=== PATIENT | male | born 1955 | race Caucasian/White ===

== ENCOUNTER 2019-08-11 14:41 | Outpatient (RCR) | payer MEDICARE, SELFPAY ==
--- NOTE | 2019-08-11 17:02 | PTOPEVAL ---
Thank you for referring this patient to [facility]. Please review, sign, date and return this plan of care JEAN-PAUL. I agree with and certify that the following plan of care is medically necessary. Referring Physician Date Admitting Provider: Attending Provider: Shamar Guillory MD Referring Provider: *PT Outpatient Evaluation Start: 08/11/19 14:56 Freq: Status: Active Protocol: Document 08/11/19 14:56 JOSLYN (Rec: 08/11/19 16:23 JOSLYN [id number]) Therapy Assessment Status Assessment Status Assessment Status Evaluation Evaluation Information Problem Diagnosis low back pain Onset 07/10/19 Subjective Information Pt. reports that he was Query Text:As Reported By Patient/ participating in cardiac rehab Family following a triple bypass in February. He reports he began cardiac rehab around March . He reports that he was demonstrating gains, but towards the conclusion of his rehab had developed low back pain. He reports that pain is all on the right side around the buttock. He reports pain is most notable with movements after sitting or laying for long times. He reports that pain is also increased with standing in one position, but will ease with walking. Pt. reports that he wants to decrease his back pain with standing upright. Prior Level of Function Activity Level (Last 3 Months) Hand Dominance Right Activity of Daily Living Ability Independent Indoor/Home Mobility Independent Community Mobility Independent Stairs Ability Independent Functional Cognition (Planning, Shopping Independent , Taking Medications) Cooking Yes Cleaning Yes Laundry Yes Shopping Yes Driving Yes Pain Assessment Pain Scale Pain Scale Used Numeric (1 - 10) Self Report Pain Assessment Right Lower Back Reported Pain Level 1 Pain Description Aching Current Pain Intensity 1 Lowest Pain Intensity 1 Greatest Pain Intensity 8 Pain Aggravating Factors Prolonged Position,Sitting Pain Relie
--- NOTE | 2019-10-16 07:17 | PCPTNOTE ---
Pt. has failed to return to the clinic. He attended a total of 7 treatment sessions. He will be discharged from our care at this time.
== END 2019-09-08 09:42 | disposition home or self-care (01) ==
LOC: CHSPT 14:41
PROVIDERS: Visit Provider Family Medicine
DX: M54.5 Low back pain (principal)
CPT/HCPCS: 97014; 97110; 97161; G0283

== ENCOUNTER 2019-09-24 13:58 | Outpatient (CLI) | payer MEDICARE, SELFPAY ==
--- NOTE | ~2019-09-24 | MR_ITS ---
EXAMINATION: MR lumbar spine wo con EXAM DATE: 09/24/2019 16:16 INDICATION: Low back pain radiating down right buttock, hip. TECHNIQUE: Multi-sequential, multiplanar MR images of the lumbar spine were obtained without contrast . Sagittal T1, T2, T2 fat saturation images. Axial T2 weighted images. There is no prior study for comparison. FINDINGS: There is mild to moderate disc disease L3-4 and L4-5, mild at the other lumbar levels. Ther e is 3 mm retrolisthesis L3 on L4 and L4 on L5. Heterogeneous marrow without focal suspicious signal abnormalities. The conus medullaris terminates at the T12-L1 level and has normal signal intensity an d morphology. Paraspinal soft tissue is unremarkable. Level by level evaluation: T12-L1: Disc does not extend beyond the endplate margin. Facet arthropathy: Mild. Neural foraminal stenosis: No stenosis. Central canal stenosis: No stenosis. L1-L2: There is a mild diffuse disc bulge. Facet arthropathy: Mild. Neural foraminal stenosis: No stenosis. Central canal stenosis: No stenosis. L2-L3: There is a mild diffuse disc bulge. Facet arthropathy: Mild. Neural foraminal stenosis: Mild bilateral. Central canal stenosis: Mild. L3-L4: There is a moderate diffuse disc bulge. Facet arthropathy: Mild to moderate. Neural foraminal stenosis: Moderate to severe bilateral. Central canal stenosis: Mild to moderate. L4-L5: There is a moderate diffuse disc bulge. Facet arthropathy: Mild to moderate. Neural foraminal stenosis: Moderate bilateral. Central canal stenosis: Mild to moderate. L5-S1: There is a moderate diffuse disc bulge. Facet arthropathy: Moderate to severe right, moderate left. Neural foraminal stenosis: Moderate to severe bilateral. Central canal stenosis: Mild. IMPRESSION: 1. L5-S1 moderate to severe bilateral neural foraminal stenosis. 2. Lesser spondylosis above. Reviewed, dictated and finalized at location B. 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
== END 2019-09-24 13:59 | disposition home or self-care (01) ==
LOC: CHSIMG 13:59
PROVIDERS: PCP Family Medicine; Visit Provider Family Medicine
DX: M54.5 Low back pain (principal)
CPT/HCPCS: 72148

== ENCOUNTER 2020-11-24 09:07 | Outpatient (CLI) | payer MEDICARE, SELFPAY ==
--- NOTE | ~2020-11-24 | MR_ITS ---
EXAMINATION: MR lumbar spine wo/w con DATE: 11/24/2020 10:53 INDICATION: Lumbar radiculopathy. TECHNIQUE: Magnetic resonance imaging (MRI) of the lumbar spine was performed without and with 10 mL MultiHance intravenous contrast. Sequences included sagittal T2-weighted FSE, sagittal T2-weighted FS FSE, and sagittal and axial T1-weighted FSE. Postcontrast sequences included axial T2-weighted FSE a nd axial and sagittal T1-weighted FS FSE. COMPARISON: Lumbar spine MRI 09/24/2019 FINDINGS: There is 3 mm retrolisthesis of L2 on L3, L3 on L4, and L4 on L5. There are Schmorl's nodes at most levels. There is mild chronic anterior wedging of T12-L2 vertebral bodies. There is mildly d ecreased disc height at L3-L4, severely decreased disc height at L4-L5, and moderately decreased disc height at L5-S1. The distal spinal cord signal intensity is normal. The conus medullaris is at L1. T he following disc levels are specifically discussed: L1-L2: The disc does not extend beyond the endplate margin. There is mild bilateral facet joint osteo arthritis. There is no neural foraminal stenosis. There is no central canal stenosis. L2-L3: The disc does not extend beyond the endplate margin. There is mild bilateral facet joint osteo arthritis. There is no neural foraminal stenosis. There is no central canal stenosis. L3-L4: The disc is bulging and has an annular fissure. There is mild bilateral facet joint osteoarthr itis. There is moderate bilateral neural foraminal stenosis. There is mild central canal stenosis. L4-L5: The disc is bulging and has an annular fissure. There is severe bilateral facet joint osteoart hritis. There is moderate bilateral neural foraminal stenosis. There is mild central canal stenosis. L5-S1: The disc is bulging with superimposed left central extrusion with 12 mm superior extension. Th ere is severe bilateral facet joint osteoarthritis. There is moderate bilateral neural foraminal sten osis. There is mild central canal stenosis. IMPRESSION: 1. Severe lumbar spondylosis, worsened at L5-S1 from 09/24/2019. Reviewed, dictated and finalized at location A.
--- NOTE | ~2020-11-24 | CT_ITS ---
EXAMINATION: CT lumbar spine wo con DATE: 11/24/2020 09:38 INDICATION: Low back pain. TECHNIQUE: Computed tomography (CT) of the lumbar spine was performed without intravenous contrast. A utomated exposure control and iterative reconstruction technique were employed. The dose-length produ ct was 1248.20 mGy-cm. COMPARISON: Lumbar spine MRI 09/24/2019 FINDINGS: There is 3 degrees levocurvature of lumbar spine. There is 3 mm retrolisthesis of L2 on L3, L3 on L4, and L4 on L5. There are Schmorl's nodes at most levels. There is mild chronic anterior wed ging of T12-L2 vertebral bodies. There is mildly decreased disc height at L3-L4, severely decreased d isc height at L4-L5, and moderately decreased disc height at L5-S1. The following disc levels are spe cifically discussed: L1-L2: The disc does not extend beyond the endplate margin. There is mild bilateral facet joint osteo arthritis. There is no neural foraminal stenosis. There is no central canal stenosis. L2-L3: The disc does not extend beyond the endplate margin. There is mild bilateral facet joint osteo arthritis. There is no neural foraminal stenosis. There is no central canal stenosis. L3-L4: The disc is bulging. There is mild right and moderate left facet joint osteoarthritis. There i s moderate bilateral neural foraminal stenosis. There is mild central canal stenosis. L4-L5: The disc is bulging. There is severe bilateral facet joint osteoarthritis. There is moderate b ilateral neural foraminal stenosis. There is mild central canal stenosis. L5-S1: The disc is bulging. There is severe bilateral facet joint osteoarthritis. There is moderate b ilateral neural foraminal stenosis. There is mild central canal stenosis. IMPRESSION: 1. Severe lumbar spondylosis. Reviewed, dictated and finalized at location A.
[2020-11-24 09:27] LABS: Estimated Glomerular Filt Rate 47
== END 2020-11-24 09:08 | disposition home or self-care (01) ==
LOC: CHSIMG 09:09
PROVIDERS: PCP Family Medicine
DX: M54.16 Radiculopathy, lumbar region (principal); M48.061 Spinal stenosis, lumbar region without neurogenic claudication; R26.2 Difficulty in walking, not elsewhere classified
CPT/HCPCS: 72131; 72158; A9577

== ENCOUNTER 2021-02-26 09:20 | Emergency (ER) | payer MEDICARE, SELFPAY ==
--- NOTE | ~2021-02-26 | CT_ITS ---
EXAMINATION: CT abdomen pelvis wo con DATE: 02/26/2021 10:46 INDICATION: Right flank pain. TECHNIQUE: Computed tomography (CT) of the abdomen and pelvis was performed without intravenous contr ast. Automated exposure control and iterative reconstruction technique were employed. The dose-length product was 1222.41 mGy-cm. COMPARISON: None FINDINGS: Lung bases are clear. Heart size is normal. Atherosclerotic coronary artery calcification with change of prior median sternotomy and coronary artery bypass grafting. No pericardial or pleural effusion. Liver, gallbladder, spleen and bilateral adrenal glands are normal. There is marked fatty atrophy of the body and tail of the pancreas. Moderate bilateral renal atrophy with 1 mm stones at the lower joe yces of both kidneys. Additional 1 mm nonobstructing stone at the right ureterovesicular junction. No hydronephrosis. Partially decompressed bladder is normal. Prominent diverticulosis throughout the co phuong without adjacent inflammatory change to suggest diverticulitis. Small bowel and appendix are norm al. Small fat-containing right inguinal hernia. No free intraperitoneal gas or fluid. No pathological ly enlarged abdominal or pelvic lymphadenopathy. There is calcified atherosclerosis of the aorta and many of the other arteries. Moderate lower lumbar spondylosis. IMPRESSION: 1. Nephrolithiasis with 1 mm stones at the right ureterovesicular junction and lower pole calyces of both kidneys with no hydronephrosis. 2. Diverticulosis. 3. Small fat-containing right inguinal hernia. Reviewed, dictated and finalized at location A.
[2021-02-26 09:50] VITALS: BP 132/69; PULSE 80; RESP 20; TEMP 36.6; O2SAT 94
[2021-02-26 10:05] LABS: Add Urine Microscopic? YES; Appearance Urine Sl Cloudy (Clear); Bilirubin Urine Negative (Negative); Blood Urine 3+ (Negative); Color Urine Yellow (Yellow); Glucose Urine UA Negative (Negative); Ketones Urine Trace (Negative); Leukocyte Esterase Ur Negative LEU/UL (Negative); Nitrate Urine Negative (Negative); Protein Urine Negative (Negative); Specific Grav Ur 1.025 (1.010-1.020); Urobilinogen Urine 0.2 mg/dL (0.2-1.0); pH Urine 5.5 (5.0-8.0)
[2021-02-26] MEDS: KETOROLAC 30 MG/ML VIAL (*BKC) IV PUSH (10:18)
[2021-02-26 10:20] LABS: Basophils Absolute Auto 0.04 K/mm3 (0.00-0.10); Basophils Percent Auto 0.5 % (0.0-1.0); Eosinophils Absolute Auto 0.16 K/mm3 (0.02-0.50); Hematocrit 42.7 % (37.0-46.0); Hemoglobin 14.2 g/dL (12.4-15.3); Immature Granulocyte Absolute 0.12 K/mm3 (0.00-0.00); Immature Granulocyte Percent A 1.5 % (0.0-0.0); Lymphocytes Absolute Auto 1.51 K/mm3 (1.10-4.50); Lymphocytes Percent Auto 19.2 % (18.0-42.0); Mean Corpuscular HGB Conc 33.3 g/dL (32.0-36.0); Mean Corpuscular Hemoglobin 30.1 pg (27.0-31.0); Mean Corpuscular Volume 90.7 fL (78.0-102.0); Monocytes Absolute Auto 0.67 K/mm3 (0.10-0.90); Monocytes Percent Auto 8.5 % (2.0-11.0); Neutrophils Absolute Auto 5.4 K/mm3 (1.7-7.2); Neutrophils Percent Auto 68.3 % (50.0-70.0); Platelet Count Result 205 K/mm3 (150-420); Red Blood Count 4.71 M/mm3 (4.70-6.10); Red Cell Distribution Width 13.7 % (11.6-14.4); White Blood Count 7.9 K/mm3 (4.8-10.8)
[2021-02-26 10:21] LABS: Bacteria Urine Trace /hpf; RBC Urine 51-75 /hpf (0-2); Squamous Epithelial Cell Urine Rare /hpf (Few); Uric Acid Crystals Urine Present /hpf; WBC Urine None seen /hpf (0-3)
[2021-02-26 10:41] LABS: Alanine Aminotransferase 16 U/L (16-63); Albumin Level 3.6 g/dL (3.4-5.0); Alkaline Phosphatase 87 U/L (46-116); Anion Gap 12 mmol/L (8-16); Aspartate Amino Transferase 20 U/L (15-37); Bilirubin,Total 0.7 mg/dL (0.00-1.00); Blood Urea Nitrogen 38 mg/dL (7-18); Calcium 9.1 mg/dL (8.5-10.1); Carbon Dioxide 27 mmol/L (21-32); Chloride 103 mmol/L (98-108); Estimated CRCL calculation 54 ml/min; Estimated Glomerular Filt Rate 46; Glucose 127 mg/dL (70-99); Osmolality Calculated 305 mOsm/kg (285-295); Potassium 4.1 mmol/L (3.5-5.1); Sodium 142 mmol/L (136-145); Total Protein 7.4 g/dL (6.4-8.2)
--- NOTE | 2021-02-26 11:10 | ED.GENADULT ---
HPI - General Adult General Chief complaint: Urogenital-Male Stated complaint: low back, blood in urine, painful urination Time Seen by Provider: 02/26/21 10:05 Source: patient Mode of arrival: ambulatory Limitations: no limitations History of Present Illness HPI narrative: Patient comes in after waking this am with right flank pain moderately severe, most dull pain, ongoing for the past 2 hours prior to presentation, and accompanied with blood in his urine. nothing has relieved this at home. Onset (ago): hour(s) Radiation: non-radiation Severity: moderate Quality: dull Pain Consistency: constant Relieving factors: none Exacerbating factors: none Associated symptoms: other (bloody urine) Treatments prior to arrival: none Related Data Home Medications Medication Instructions Recorded Confirmed aspirin 81 mg tablet,delayed 81 mg PO DAILY 08/19/19 02/26/21 release lisinopril 20 mg tablet 80 mg PO DAILY 08/19/19 02/26/21 metoprolol tartrate 100 mg tablet 100 mg PO BID tablet 08/19/19 02/26/21 carbidopa-levodopa 2.5 tablet PO QID 02/26/21 02/26/21 doxazosin 2 mg PO DAILY 02/26/21 02/26/21 hydrochlorothiazide 12.5 mg PO DAILY 02/26/21 02/26/21 melatonin 1 mg PO TID 02/26/21 02/26/21 Allergies Allergy/AdvReac Type Severity Reaction Status Date / Time No Known Allergies Allergy Unverified 02/26/21 10:26 Review of Systems Constitutional: Constitutional: Reports no additional constitutional complaints Eyes: Eyes: Reports no additional eye complaints ENT: Reports system reviewed and no additional complaints, except as documented Cardiovascular: Cardiovascular: Reports no additional cardiovascular complaints Respiratory: Respiratory: Reports no additional respiratory complaints Gastrointestinal: Gastrointestinal: Reports no additional gastrointestinal complaints Genitourinary: Genitourinary: Reports no additional male genitourinary complaints Musculoskeletal: Musculoskeletal: Reports no additional musculoskeletal complaints Integumentary/Breasts: Skin/Breast: Reports system reviewed and no additional complaints, except as docu Neurologic: Reports system reviewed and no additional complaints, except as documented Psychiatric: Psychiatric: Reports no additional psychiatric complaints Endocrine: Endocrine: Reports no additional endocrine complaints Hematologic/Lymphatic: Hematologic/Lymphatic: Reports no additional hematologic/lymphatic complaints Allergic/Immunologic: Allergic/Immunologic: Reports no additional allergic/immunologic complaints PMFSH Past Medical History Medical History Kidney stone Surgical History Surgical History Hx of CABG Family History Family History Grandparent Acute myocardial infarction Family history of arthritis Malignant neoplasm of prostate Mother Family history of arthritis Other Family history of hearing loss Social History Social History Smoking status: Never smoker Second hand tobacco smoke exposure: No Alcohol intake: current Gender identity (if verbalized by the patient): Male Exam Const: Orientation/consciousness: patient oriented x3 HENMT: Head: normal to inspection Ears: TM's normal bilaterally General nose exam: Normal nares present Mouth: Yes Normal oral and palatal mucosa present Throat: posterior oropharynx normal Eyes: Conjunctivae: conjunctivae normal Neck: Neck: no lymphadenopathy Chest: Chest palpation & inspection: normal inspection of the chest Resp: Effort & Inspection: normal respiratory effort Auscultation: clear to auscultation bilaterally Cardio: Rate: regular rate Rhythm: regular rhythm GI: GI Palp: Yes Soft to palpation Auscultation: normal bowel sounds : Testes: Testes normal Back/Spine/Pelvis: Back:
[2021-02-26] MEDS: TAMSULOSIN HCL 0.4 MG CAPSULE PO (11:47)
[2021-02-26 12:02] VITALS: BP 101/72; PULSE 74; RESP 20; TEMP 36.6; O2SAT 96
== END 2021-02-26 12:04 | disposition home or self-care (01) ==
PROVIDERS: Emergency Provider Emergency Medicine; PCP Family Medicine
DX: N20.0 Calculus of kidney (principal)
CPT/HCPCS: 36415; 74176; 80053; 81001; 83605; 85025; 96374; 99283; 99284; A9270; J1885

== ENCOUNTER 2021-03-10 10:36 | Emergency (ER) | payer MEDICARE, SELFPAY ==
[2021-03-10] VITALS (9 sets, daily range): BP systolic 91–131; BP diastolic 56–75; PULSE 75–89; RESP 17–22; TEMP 35.8–35.9; O2SAT 84–100
--- NOTE | ~2021-03-10 | CT_ITS ---
EXAMINATION: CTA chest PE protocol DATE: 03/10/2021 13:07 INDICATION: Shortness of breath. TECHNIQUE: Computed tomography angiography (CTA) of the chest was performed with 100 mL Omnipaque-350 intravenous contrast timed to evaluate the pulmonary arteries. Coronal maximum intensity projection 3D-reconstructions were created by the technologist. Automated exposure control and iterative reconst ruction technique were employed. The dose-length product was 736.91 mGy-cm. COMPARISON: Chest CT 12/16/2018 FINDINGS: The lungs demonstrate mild atelectasis. No pleural effusion. The heart demonstrates cardiom egaly including right ventricular enlargement, consistent with right heart strain. There are coronary artery calcifications. No pericardial effusion. Main pulmonary artery is enlarged, consistent with p ulmonary arterial hypertension. There are saddle emboli in the distal right and left main pulmonary a rteries with pulmonary emboli in all lobes. There are changes of coronary artery bypass grafting. The re is mild thoracic spondylosis. IMPRESSION: 1. Severe acute bilateral pulmonary emboli with right heart strain. I called this result to Dr. Tanesha coe. Reviewed, dictated and finalized at location A. IMPRESSION: 1. Severe acute bilateral pulmonary emboli with right heart strain. I called th is result to Dr. Luis.
--- NOTE | 2021-03-10 11:34 | ECG_ITS ---
Measurements Intervals [place] Rate: 77 P: 4 MT: 257 QRS: 68 QRSD: 99 T: -23 QT: 389 QTc: 440 Interpretive Statements SINUS RHYTHM WITH FIRST DEGREE AV BLOCK INCOMPLETE RIGHT BUNDLE BRANCH BLOCK DELAYED PRECORDIAL R/S TRANSITION ST-T WAVE ABNORMALITY IN ANTERIOR LEADS- CONSIDER ISCHEMIA BASELINE ARTIFACT- II, III, AVR, AVL, AVF, V2-V5 ABNORMAL ECG Electronically Signed On 03-10-2021 11:57:28 CDT by Aníbal Gottlieb D.O.
[2021-03-10 11:58] LABS: Basophils Absolute Auto 0.04 K/mm3 (0.00-0.10); Basophils Percent Auto 0.5 % (0.0-1.0); Eosinophils Absolute Auto 0.22 K/mm3 (0.02-0.50); Eosinophils Percent Auto 2.7 % (1.0-6.0); Hematocrit 43.4 % (37.0-46.0); Hemoglobin 14.1 g/dL (12.4-15.3); Immature Granulocyte Absolute 0.06 K/mm3 (0.00-0.00); Immature Granulocyte Percent A 0.7 % (0.0-0.0); Lymphocytes Absolute Auto 1.21 K/mm3 (1.10-4.50); Lymphocytes Percent Auto 15.1 % (18.0-42.0); Mean Corpuscular HGB Conc 32.5 g/dL (32.0-36.0); Mean Corpuscular Hemoglobin 29.4 pg (27.0-31.0); Mean Corpuscular Volume 90.6 fL (78.0-102.0); Monocytes Absolute Auto 0.67 K/mm3 (0.10-0.90); Monocytes Percent Auto 8.3 % (2.0-11.0); Neutrophils Absolute Auto 5.8 K/mm3 (1.7-7.2); Neutrophils Percent Auto 72.7 % (50.0-70.0); Platelet Count Result 163 K/mm3 (150-420); Red Blood Count 4.79 M/mm3 (4.70-6.10); Red Cell Distribution Width 13.6 % (11.6-14.4)
[2021-03-10 12:23] LABS: D Dimer 15.21 mg/L (0.19-0.50)
[2021-03-10 12:25] LABS: Alanine Aminotransferase 13 U/L (16-63); Albumin Level 3.7 g/dL (3.4-5.0); Alkaline Phosphatase 79 U/L (46-116); Anion Gap 10 mmol/L (8-16); Aspartate Amino Transferase 13 U/L (15-37); Bilirubin,Total 0.6 mg/dL (0.00-1.00); Blood Urea Nitrogen 30 mg/dL (7-18); Calcium 9.2 mg/dL (8.5-10.1); Carbon Dioxide 29 mmol/L (21-32); Chloride 105 mmol/L (98-108); Estimated Glomerular Filt Rate 49; Glucose 130 mg/dL (70-99); Osmolality Calculated 306 mOsm/kg (285-295); Potassium 4.1 mmol/L (3.5-5.1); Sodium 144 mmol/L (136-145); Total Protein 7.4 g/dL (6.4-8.2)
[2021-03-10 12:27] LABS: Troponin I 76.2 ng/L (0.00-60.4)
[2021-03-10 13:04] LABS: SARS-CoV-2 Ag Negative (Negative)
--- NOTE | 2021-03-10 13:28 | PC.NURSE ---
CALL PLACED TO [facility] FOR POSSIBLE TRANSFER - WILL BE PLACED ON WAITING LIST
--- NOTE | 2021-03-10 13:49 | ED.GENADULT ---
HPI - General Adult General Chief complaint: Shortness of Breath/Dyspnea Stated complaint: SOB Time Seen by Provider: 03/10/21 13:15 Source: patient Limitations: no limitations History of Present Illness HPI narrative: Fabian is a 65M with a PMH of DMII, HTN, PE, and parkinson's that came to the ED with SOB. I assumed care from Dr. Santiago around 1215. He reportedly was walking up the stairs when he suddenly had SOB and became lightheaded and sat down. It did not improve so he came to the ED. He denies CP, nausea, vomiting and abdominal pain. Related Data Home Medications Medication Instructions Recorded Confirmed aspirin 81 mg tablet,delayed 81 mg PO DAILY 08/19/19 03/10/21 release lisinopril 20 mg tablet 80 mg PO DAILY 08/19/19 03/10/21 metoprolol tartrate 100 mg tablet 100 mg PO BID tablet 08/19/19 03/10/21 carbidopa-levodopa 2 tablet PO TID 02/26/21 03/10/21 doxazosin 2 mg PO HS 02/26/21 03/10/21 hydrochlorothiazide 12.5 mg PO DAILY 02/26/21 03/10/21 melatonin 1 mg PO TID 02/26/21 03/10/21 hydrocodone-acetaminophen 1 - 2 tablet PO Q6-8H PRN 03/10/21 03/10/21 Allergies Allergy/AdvReac Type Severity Reaction Status Date / Time No Known Allergies Allergy Unverified 02/26/21 10:26 Review of Systems Constitutional: Constitutional: Denies chills, Reports fatigue, Denies fever(s) and Reports weakness Eyes: Eyes: Reports no additional eye complaints ENT: Reports system reviewed and no additional complaints, except as documented Cardiovascular: Cardiovascular: Reports as per HPI Respiratory: Respiratory: Reports as per HPI Gastrointestinal: Gastrointestinal: Reports no additional gastrointestinal complaints Genitourinary: Genitourinary: Reports no additional male genitourinary complaints Musculoskeletal: Musculoskeletal: Reports no additional musculoskeletal complaints Integumentary/Breasts: Skin/Breast: Reports system reviewed and no additional complaints, except as docu Neurologic: Reports system reviewed and no additional complaints, except as documented Psychiatric: Psychiatric: Reports no additional psychiatric complaints Endocrine: Endocrine: Reports no additional endocrine complaints Hematologic/Lymphatic: Hematologic/Lymphatic: Reports no additional hematologic/lymphatic complaints Allergic/Immunologic: Allergic/Immunologic: Reports no additional allergic/immunologic complaints [facility] Past Medical History Medical History Kidney stone Surgical History Surgical History Hx of CABG Family History Family History Grandparent Acute myocardial infarction Family history of arthritis Malignant neoplasm of prostate Mother Family history of arthritis Other Family history of hearing loss Social History Social History Smoking status: Never smoker Second hand tobacco smoke exposure: No Alcohol intake: current Gender identity (if verbalized by the patient): Male Exam Const: General: alert Orientation/consciousness: patient oriented x3 Limitations: No altered mental status Other: In moderate distress with increased work of breathing HENMT: Head: normal to inspection Other: atraumatic, EOMI Eyes: Conjunctivae: conjunctivae normal Pupils: Equal, round and reactive pupils present Chest: Chest palpation & inspection: normal inspection of the chest Resp: Effort & Inspection: labored, tachypneic and uses accessory muscles Auscultation: clear to auscultation bilaterally Cardio: Rate: regular rate Rhythm: regular rhythm Heart sounds: no murmurs GI: Inspection: non-distended GI Palp: Yes Soft to palpation, No Tenderness to palpation present (GI) and No Guarding due to palpation present (GI) Back/Spine/Pelvis: Back: no CVA tenderness Skin: General skin exa
[2021-03-10] MEDS: HEPARIN SOD/D5W 100 UNITS/ML 25,000 UNITS/250 ML BAG 16.27 UNITS IV CONT (13:53)
[2021-03-10] MEDS: HEPARIN SODIUM 5,000 UNITS/ML VIAL 7000 UNITS IV PUSH (13:53)
[2021-03-10 13:59] LABS: NT Pro B Type Natriuretic Pept 377 pg/mL (0-125)
--- NOTE | 2021-03-10 14:01 | PHAR ---
03/10/21: PUT PT. DATA INTO PHARM CALC. HEPARIN DOSING WEIGHT S 90.4KG. PULMONARY EMBOLISM PROTOCOL. TLS
--- NOTE | 2021-03-10 14:04 | PC.NURSE ---
[facility] CALLED FOR POSSIBLE TRANSFER - PT UPDATED ON WAIT TIMES AND THE NEED TO TRANSFER R/T HIS DIAGNOSIS - PT STATES HE IS IN NO DISTRESS AT THIS TIME
--- NOTE | 2021-03-10 14:47 | PC.NURSE ---
[facility] CALLED FOR POSSIBLE WAITING LIST, [facility] CALLED FOR POSSIBLE WAITING LIST FOR TRANSFER - PT AND FAMILY AWARE OF WAIT TIMES.
[2021-03-10] MEDS: CARBIDOPA/LEVODOPA 25/100 MG TABLET 2.5 TABLET PO (15:40)
[2021-03-10] MEDS: SODIUM CHLORIDE 0.9% IV 1,000 ML 500 ML IV CONT (17:35)
--- NOTE | 2021-03-10 17:41 | PC.NURSE ---
PT IS MOVED FORM BEDSIDE CHAIR BACK INTO BED HIS PRESSURE DROPPED. PT STATES HE STILL FEELS FINE, DENIES DIZZINESS
--- NOTE | 2021-03-10 20:15 | PC.NURSE ---
pt resting per cot eyes closed. call espana in reach
--- NOTE | 2021-03-10 22:01 | PC.NURSE ---
pt going to room 201 for ERHOLD status pending bed placement
--- NOTE | 2021-03-10 22:11 | PC.NURSE ---
2212pt report to RENETTA Maloney. pt to floor per wheelchair. vitals stable.
--- NOTE | 2021-03-10 22:55 | PC.NURSE ---
Patient arrived to floor, A/O x4. [employer] P[employer] Outseamer and meteorologist in charge continued heparin IV; rate of 16.27ml/hr. Medication and rate double checked. Continued medication therapy.
--- NOTE | 2021-03-10 23:12 | PC.NURSE ---
Patient on ER hold in room 1, is alert and oriented x 3 with call light in reach.
[2021-03-11 02:36] VITALS: BP 112/72; PULSE 77; RESP 20; TEMP 36.4; O2SAT 94
[2021-03-11] MEDS: CARBIDOPA/LEVODOPA 25/100 MG TABLET 2 TABLET PO (03:25)
--- NOTE | 2021-03-11 03:31 | PC.NURSE ---
[facility] notified of transfer to [facility] per pt request
--- NOTE | 2021-03-11 07:39 | PC.NURSE ---
0255--Heparin IV bag hung prior to patient leaving on stretcher with [facility] to be transferred to [facility]. Ratna Pena RN
== END 2021-03-11 03:15 | disposition short-term general hospital (02) ==
LOC: CHSED 13:15 → CHS2ND 22:25
PROVIDERS: Emergency Medicine; Emergency Provider Family Medicine; PCP Family Medicine
DX: I26.99 Other pulmonary embolism without acute cor pulmonale (principal)
CPT/HCPCS: 36415; 71275; 80053; 83880; 84484; 85025; 85380; 87426; 93005; 96365; 96366; 99285; A9270; C9803; J1644; J7030; Q9967

== ENCOUNTER 2021-03-29 10:29 | Emergency (ER) | payer MEDICARE, SELFPAY ==
--- NOTE | 2021-03-29 10:47 | ED.DIZZY ---
HPI - Dizziness General Chief Complaint: Dizziness Stated Complaint: weakness & dizzy Source: patient and RN notes reviewed Mode of arrival: ambulatory Limitations: no limitations History of Present Illness MD elicited complaint: lightheadedness Onset (ago): day(s) (2) Timing: sudden onset Severity: moderate Description: lightheadedness Context: change in medication and recent illness History of similar symptoms: Yes Exacerbating factors: other (Standing after sitting for a long period) Relieving factors: rest Associated symptoms: denies other symptoms Related Data Home Medications Medication Instructions Recorded Confirmed aspirin 81 mg tablet,delayed 81 mg PO DAILY 08/19/19 03/29/21 release metoprolol tartrate 100 mg tablet 100 mg PO BID tablet 08/19/19 03/29/21 carbidopa-levodopa 2 tablet PO TID 02/26/21 03/29/21 doxazosin 2 mg PO HS 02/26/21 03/29/21 hydrochlorothiazide 12.5 mg PO DAILY 02/26/21 03/29/21 melatonin 1 mg PO TID 02/26/21 03/29/21 hydrocodone-acetaminophen 1 - 2 tablet PO Q6-8H PRN 03/10/21 03/29/21 apixaban [Eliquis] 5 mg PO DAILY 03/29/21 03/29/21 Allergies Allergy/AdvReac Type Severity Reaction Status Date / Time No Known Allergies Allergy Unverified 02/26/21 10:26 Review of Systems Review of Systems: All systems reviewed & are unremarkable except as noted in HPI and below PMFSH Past Medical History Medical History DVT (deep venous thrombosis) Kidney stone Pulmonary embolism Surgical History Surgical History (Updated 03/29/21 @ 11:39 by Donald Shepherd MD) Hx of CABG Family History Family History Grandparent Acute myocardial infarction Family history of arthritis Malignant neoplasm of prostate Mother Family history of arthritis Other Family history of hearing loss Social History Social History Smoking status: Never smoker Second hand tobacco smoke exposure: No Alcohol intake: current Gender identity (if verbalized by the patient): Male Exam Const: General: healthy appearing and no acute distress Nutritional Appearance: well nourished and obese centrally obese Orientation/consciousness: patient oriented x3 HENMT: Head: normal to inspection Ears: external ear abnormal Eyes: Conjunctivae: conjunctivae normal Pupils: Equal, round and reactive pupils present EOM: EOMs intact bilaterally Neck: Neck: normal visual inspection Resp: Effort & Inspection: normal respiratory effort Auscultation: clear to auscultation bilaterally Cardio: Rate: regular rate Rhythm: regular rhythm GI: Auscultation: normal bowel sounds Back/Spine/Pelvis: Cervical Spine: cervical ROM normal Thoracic/Lumbar Spine: thoraco-lumbar ROM normal Skin: General skin exam: normal color Rashes: no rashes Neuro: General: patient oriented x3, moves all extremities, no meningeal signs and no focal motor deficits Cranial nerves: Yes Nystagmus not present Speech: normal speech Gait exam (Neuro): Normal gait present Extrem: General: normal to inspection and no clubbing, cyanosis or edema Psych: Appearance: grossly normal and well kempt Mental Status: mental status grossly normal Affect: normal affect Attitude: cooperative Thought content: Yes Normal thought content present Course Vital Signs Vital signs: Vital Signs Temperature 36.9 C 03/29/21 10:50 Pulse Rate 77 03/29/21 10:50 Respiratory Rate 17 03/29/21 10:50 Blood Pressure 116/66 03/29/21 10:50 Pulse Oximetry 98 03/29/21 10:50 Temperature 36.9 C 03/29/21 10:50 Pulse Rate 71 03/29/21 11:30 Respiratory Rate 17 03/29/21 10:50 Blood Pressure 102/62 03/29/21 12:00 Pulse Oximetry 97 03/29/21 11:30 MDM - Dizziness Lab Data Result diagrams: 03/29/21 10:50 03/29/21 10:50 Labs: Lab Results 03/01
[2021-03-29 10:50] VITALS: BP 116/66; PULSE 77; RESP 17; TEMP 36.9; O2SAT 98
[2021-03-29 11:20] LABS: Basophils Absolute Auto 0.04 K/mm3 (0.00-0.10); Basophils Percent Auto 0.6 % (0.0-1.0); Eosinophils Absolute Auto 0.25 K/mm3 (0.02-0.50); Eosinophils Percent Auto 3.9 % (1.0-6.0); Hematocrit 40.2 % (37.0-46.0); Hemoglobin 13.1 g/dL (12.4-15.3); Immature Granulocyte Absolute 0.06 K/mm3 (0.00-0.00); Immature Granulocyte Percent A 0.9 % (0.0-0.0); Lymphocytes Absolute Auto 1.11 K/mm3 (1.10-4.50); Lymphocytes Percent Auto 17.2 % (18.0-42.0); Mean Corpuscular HGB Conc 32.6 g/dL (32.0-36.0); Mean Corpuscular Hemoglobin 29.7 pg (27.0-31.0); Mean Corpuscular Volume 91.2 fL (78.0-102.0); Mean Platelet Volume 8.8 fl (8.7-11.0); Monocytes Absolute Auto 0.55 K/mm3 (0.10-0.90); Monocytes Percent Auto 8.5 % (2.0-11.0); Neutrophils Absolute Auto 4.4 K/mm3 (1.7-7.2); Neutrophils Percent Auto 68.9 % (50.0-70.0); Platelet Count Result 241 K/mm3 (150-420); Red Blood Count 4.41 M/mm3 (4.70-6.10); White Blood Count 6.4 K/mm3 (4.8-10.8)
[2021-03-29 11:30] VITALS: BP 114/68; PULSE 71; O2SAT 97
[2021-03-29 11:39] LABS: Alanine Aminotransferase 11 U/L (16-63); Albumin Level 3.4 g/dL (3.4-5.0); Alkaline Phosphatase 84 U/L (46-116); Anion Gap 10 mmol/L (8-16); Aspartate Amino Transferase 15 U/L (15-37); Bilirubin,Total 0.6 mg/dL (0.00-1.00); Blood Urea Nitrogen 28 mg/dL (7-18); Calcium 9.1 mg/dL (8.5-10.1); Carbon Dioxide 29 mmol/L (21-32); Chloride 104 mmol/L (98-108); Estimated Glomerular Filt Rate 59; Glucose 149 mg/dL (70-99); Magnesium 1.3 mg/dL (1.8-2.4); Osmolality Calculated 304 mOsm/kg (285-295); Potassium 3.4 mmol/L (3.5-5.1); Sodium 143 mmol/L (136-145); Total Protein 7.3 g/dL (6.4-8.2)
[2021-03-29 12:00] VITALS: BP 102/62
== END 2021-03-29 12:00 | disposition home or self-care (01) ==
PROVIDERS: Emergency Provider Emergency Medicine; PCP Family Medicine
DX: E87.6 Hypokalemia (principal); E83.42 Hypomagnesemia
CPT/HCPCS: 36415; 80053; 83735; 85025; 99283

== ENCOUNTER 2021-04-01 14:43 | Outpatient (RCR) | payer MEDICARE, SELFPAY ==
--- NOTE | 2021-04-01 16:09 | PTOPEVAL ---
Thank you for referring Faiban Lazar to [facility].? The patient is scheduled to be seen for therapy? ____x/week for ___ weeks. Please review, sign, date and return this plan of care JEAN-PAUL. I agree with and certify that the following plan of care is medically necessary. Referring Physician Date Admitting Provider: Attending Provider: Shamar Guillory MD Referring Provider: *PT Outpatient Evaluation Start: 04/01/21 14:45 Freq: Status: Active Protocol: Document 04/01/21 14:46 ACR (Rec: 04/01/21 16:04 [id number]) Therapy Assessment Status Assessment Status Assessment Status Evaluation Outpatient Past Medical History Neurological History Hx Parkinson's Disease Yes Cardiovascular History Hx Coronary Artery Bypass Graft Yes: 2019 Hx Deep Vein Thrombosis Yes Hx Hypercholesterolemia Yes Hx Hypertension Yes Respiratory History Hx Pulmonary Embolism Yes Hx Sleep Apnea Yes Gastrointestinal History Hx Hernia Yes Genitourinary History Hx Kidney Stones Yes Musculoskeletal History Hx Back Pain Yes Endocrine History Hx Diabetes Yes Evaluation Information Problem Diagnosis balance, weakness, back pain Onset 03/24/21 Subjective Information Patient states that he was in Query Text:As Reported By Patient/ the hospital for 12 days for Family DVT and PE. He states he has been out of the hospital for a week and a half. He states that his BP has been out of control and so he has some dizzy spells and he feels really weak. He use to be an avid runner, but he was diagnosed with Parkinson's 6 years ago and he states he is really weak. He states that his back is not really painful , but it causes him weakness. Patient states that he has had 10 falls in the past year and just started using a walker. Patient states he has difficulty with walking, standing for a period of time, getting dressed, getting in and out of a tub, navigating steps, and his balance. Patient states that he lives
--- NOTE | 2021-04-08 17:24 | PTOPEVAL ---
Thank you for referring Fabian Lazar to [facility].? The patient is scheduled to be seen for therapy? ____x/week for ___ weeks. Please review, sign, date and return this plan of care JEAN-PAUL. I agree with and certify that the following plan of care is medically necessary. Referring Physician Date Admitting Provider: Attending Provider: Shamar Guillory MD Referring Provider: *PT Outpatient Evaluation Start: 04/01/21 14:45 Freq: Status: Active Protocol: Document 04/08/21 16:06 ACR (Rec: 04/08/21 17:24 ACR [id number]) Therapy Assessment Status Assessment Status Assessment Status Re-evaluation Outpatient Past Medical History Neurological History Hx Parkinson's Disease Yes Cardiovascular History Hx Coronary Artery Bypass Graft Yes: 2019 Hx Deep Vein Thrombosis Yes Hx Hypercholesterolemia Yes Hx Hypertension Yes Respiratory History Hx Pulmonary Embolism Yes Hx Sleep Apnea Yes Gastrointestinal History Hx Hernia Yes Genitourinary History Hx Kidney Stones Yes Musculoskeletal History Hx Back Pain Yes Endocrine History Hx Diabetes Yes Evaluation Information Problem Diagnosis spinal stenosis, neck pain Onset 03/08/21 Subjective Information Patient arrives to therapy Query Text:As Reported By Patient/ with a new order this visit Family for his neck pain. He states that his neck has gotten so bad and thinks it is because he sleeps in a chair and the neck falls to the R. He thought it was a pinched nerve , but got an x-ray which was negative. The patient states both hands but not down the arms. He has limited movement in the shoulders due to the tightness. Both sides of the neck bother him. Reaching overhead is the most difficult and sleeping. Pain Assessment Timing of Pain Assessment Timing of Pain Assessment Assessment Pain Scale Pain Scale Used Numeric (1 - 10) Self Report Pain Assessment Neck Reported Pain Level 2 Pain Score Pain Score 2: Self Report Interventions Used Interventions Used By Clinicians Exercise Cervical and Lumbar ROM Cervical ROM Cervical Flexion (0-60) 41 Query Text:Active in Degrees Cervical Extension (0-70) 41 Query
--- NOTE | 2021-04-28 14:24 | PTOPEVAL ---
Thank you for referring Fabian Lazar to [facility].? The patient is scheduled to be seen for therapy? ____x/week for ___ weeks. Please review, sign, date and return this plan of care JEAN-PAUL. I agree with and certify that the following plan of care is medically necessary. Referring Physician Date Admitting Provider: Attending Provider: Shamar Guillory MD Referring Provider: *PT Outpatient Evaluation Start: 04/01/21 14:45 Freq: Status: Active Protocol: Document 04/28/21 13:11 ACR (Rec: 04/28/21 14:12 ACR [id number]) Therapy Assessment Status Assessment Status Assessment Status Progress Outpatient Past Medical History Neurological History Hx Parkinson's Disease Yes Cardiovascular History Hx Coronary Artery Bypass Graft Yes: 2019 Hx Deep Vein Thrombosis Yes Hx Hypercholesterolemia Yes Hx Hypertension Yes Respiratory History Hx Pulmonary Embolism Yes Hx Sleep Apnea Yes Gastrointestinal History Hx Hernia Yes Genitourinary History Hx Kidney Stones Yes Musculoskeletal History Hx Back Pain Yes Endocrine History Hx Diabetes Yes Evaluation Information Problem Diagnosis spinal stenosis, neck pain Onset 03/08/21 Subjective Information Patient states that since Query Text:As Reported By Patient/ beginning therapy he has felt Family much stronger and is able to walk a little better. He states that he is unsure how much we can help with the neck , but he had his medications changed a bit so he is not head bobbing as much. He states that he still is nervous ambulating on uneven terrain and wants to walk without the walker. He states he would like to continue to progress with his balance, strength, walking, and neck pain. Pain Assessment Timing of Pain Assessment Timing of Pain Assessment Pre-Treatment Pain Scale Pain Scale Used Numeric (1 - 10) Self Report Pain Assessment Neck Reported Pain Level 1 Greatest Pain Intensity 8 Pain Score Pain Score 1: Self Report Interventions Used Interventions Used By Clinicians Activity or ADL's,Exercise Cervical and Lumbar ROM Cervical ROM Cervical Flexion (0-60) 41 Query Text:Active in Degrees Cervical Ex
--- NOTE | 2021-05-30 14:25 | PTOPEVAL ---
Thank you for referring Fabian Lazar to [facility].? The patient is scheduled to be seen for therapy? __2__x/week for 6 visits. Please review, sign, date and return this plan of care JEAN-PAUL. I agree with and certify that the following plan of care is medically necessary. Referring Physician Date Admitting Provider: Attending Provider: Shamar Guillory MD Referring Provider: *PT Outpatient Evaluation Start: 04/01/21 14:45 Freq: Status: Active Protocol: Document 05/30/21 13:09 JOSLYN (Rec: 05/30/21 14:23 JOSLYN [id number]) Therapy Assessment Status Assessment Status Assessment Status Progress Outpatient Past Medical History Neurological History Hx Parkinson's Disease Yes Cardiovascular History Hx Cardiac Surgery Yes Hx Coronary Artery Bypass Graft Yes: 2019 Hx Deep Vein Thrombosis Yes Hx Hypercholesterolemia Yes Hx Hypertension Yes Respiratory History Hx Pulmonary Embolism Yes Hx Sleep Apnea Yes Gastrointestinal History Hx Hernia Yes Genitourinary History Hx Kidney Stones Yes Musculoskeletal History Hx Back Pain Yes Endocrine History Hx Diabetes Yes Evaluation Information Problem Diagnosis spinal stenosis, neck pain Onset 03/08/21 Subjective Information Pt. reports he was Query Text:As Reported By Patient/ hospitalized last week due to Family diverticulitis. He reports since beginning rehab he has noticed improvements in strength and his ability to walk. He reports he is down a little this week due to his recent hospitalization. Pain Assessment Pain Scale Pain Scale Used Numeric (1 - 10) Self Report Pain Assessment Neck Reported Pain Level 1 Pain Score Pain Score 1: Self Report Interventions Used Interventions Used By Clinicians Activity or ADL's,Exercise Lower Extremity Muscle Strength Testing Hip Strength Bilateral Hip Flexion Strength 4+ Good + Knee Strength Right Knee Flexion Strength 5 Normal Knee Extension Strength 5 Normal Left Knee Flexion Strength 4 Good Knee Extension Strength 4 Good Upper Extremity Muscle Strength Testing Scapular/Shoulder Bilateral Shoulder Flexion Strength 4 Good Shoulder Extension Strength 4 Good Shoulder Abduction Strength 4 Good Shoulder Medial Rotation Strength 4+ Good + Shoulder Lateral Rotation Strength 4 Good Balance Assessment Tinetti Balance Assessment Sitting [facility]
--- NOTE | 2021-06-21 12:59 | PTOPEVAL ---
Thank you for referring Fabian Lazar to [facility].? The patient is scheduled to be seen for therapy? ____x/week for ___ weeks. Please review, sign, date and return this plan of care JEAN-PAUL. I agree with and certify that the following plan of care is medically necessary. Referring Physician Date Admitting Provider: Attending Provider: Shamar Guillory MD Referring Provider: *PT Outpatient Evaluation Start: 04/01/21 14:45 Freq: Status: Active Protocol: Document 06/21/21 11:11 ACR (Rec: 06/21/21 12:01 ACR [id number]) Therapy Assessment Status Assessment Status Assessment Status Discharge Outpatient Past Medical History Neurological History Hx Parkinson's Disease Yes Cardiovascular History Hx Cardiac Surgery Yes Hx Coronary Artery Bypass Graft Yes: 2019 Hx Deep Vein Thrombosis Yes Hx Hypercholesterolemia Yes Hx Hypertension Yes Respiratory History Hx Pulmonary Embolism Yes Hx Sleep Apnea Yes Gastrointestinal History Hx Hernia Yes Genitourinary History Hx Kidney Stones Yes Musculoskeletal History Hx Back Pain Yes Endocrine History Hx Diabetes Yes Evaluation Information Problem Diagnosis spinal stenosis, neck pain Onset 03/08/21 Subjective Information Patient reports that he feels Query Text:As Reported By Patient/ therapy is really helping him Family because he is able to get up from a chair easier and his walking is a little better, but he still has difficulty with dynamic balance such as tapping the cones. The patient would like to continue therapy because it is helping. He reports that he heard from the nurse practitioner and is getting a consult for his neck because they think they will be able to help correct the problem. Pain Assessment Timing of Pain Assessment Timing of Pain Assessment Pre-Treatment Pain Scale Pain Scale Used Numeric (1 - 10) Self Report Pain Assessment Neck Reported Pain Level 3 Pain Score Pain Score 3: Self Report Interventions Used Interventions Used By Clinicians Activity or ADL's,Exercise Lower Extremity Muscle Strength Testing Hip Strength Bilateral Hip Flexion Strength 5 Normal Knee Strength Right Knee Flexion Strength
== END 2021-06-21 13:40 | disposition home or self-care (01) ==
LOC: CHSPT 14:43
PROVIDERS: PCP Family Medicine; Visit Provider Family Medicine
DX: R53.1 Weakness (principal); M54.12 Radiculopathy, cervical region
CPT/HCPCS: 97014; 97110; 97112; 97116; 97140; 97161; 97164; 97530; G0283

== ENCOUNTER 2021-05-21 21:38 | Inpatient (IN) | payer MEDICARE, SELFPAY ==
--- NOTE | ~2021-05-21 | XR_ITS ---
EXAMINATION: XR chest 1V portable INDICATION: Weakness TECHNIQUE: Portable AP chest at 2216 hours COMPARISON: 02/24/2019 FINDINGS: The lungs are free of acute opacities. There is no pleural effusion or pneumothorax. Cardio megaly is noted. Median sternotomy wires and mediastinal surgical clips are seen, likely from prior c oronary artery bypass grafting. IMPRESSION: 1. No acute cardiopulmonary abnormality. Reviewed, dictated and finalized at location A.
--- NOTE | ~2021-05-21 | CT_ITS ---
EXAMINATION: CT brain wo con INDICATION: Weakness and dizziness COMPARISON: None TECHNIQUE: Standard unenhanced head CT. The dose-length product (DLP) was 756.67 mGy-cm. The mA was a djusted according to patient size. Iterative reconstruction technique was employed. FINDINGS: There is no intracranial hemorrhage, acute infarction, or abnormal mass lesion. The ventric les are normal. There is no abnormal mass effect or midline shift. The quijano-white matter differentiat ion is normal. The basal cisterns are patent. Intracranial calcified cerebral atherosclerosis is note d. The orbits are normal. The paranasal sinuses, mastoids and calvarium are normal. IMPRESSION: 1. No acute intracranial abnormality. Reviewed, dictated and finalized at location A.
--- NOTE | ~2021-05-21 | CT_ITS ---
EXAMINATION: CT abdomen pelvis w con INDICATION: Lower abdominal pain TECHNIQUE: Computed tomographic images of the abdomen and pelvis were obtained after the administrati on of 100 cc of Omnipaque 350 intravenous contrast. The dose-length product (DLP) was 1443.57 mGy-cm. Automated exposure control and iterative reconstruction technique were employed. COMPARISON: 02/26/2021 FINDINGS: Minimal dependent atelectasis is present in the lung bases. The heart size is normal. The l iver, spleen, gallbladder, and adrenal glands are normal. There is fatty atrophy of the body and tail of the pancreas. There are punctate nonobstructing stones of the otherwise normal kidneys. There is calcified atherosclerosis of the aorta and many of the other arteries. There is diverticulosis with w all thickening of the sigmoid colon and edematous stranding of the surrounding perisigmoid fat. There is no free intraperitoneal gas or evidence of bowel obstruction. There is moderate lumbar spondylosi s. Fat-containing right inguinal hernia is noted. IMPRESSION: 1. Acute uncomplicated sigmoid diverticulitis. Reviewed, dictated and finalized at location A.
[2021-05-21 21:38] VITALS: BP 143/91; PULSE 105; RESP 20; TEMP 36.5; O2SAT 98
--- NOTE | 2021-05-21 21:43 | ED.WEAKNESS ---
HPI - Weakness General Chief complaint: Weakness Stated complaint: AMBULANCE Time Seen by Provider: 05/21/21 21:44 Source: patient Mode of arrival: EMS Limitations: no limitations History of Present Illness HPI Narrative: 66-year-old man with history of Parkinson's, coronary artery disease, and pulmonary emboli comes in today complaining of weakness. Patient states that he went to stand up this evening, was able to maintain his position and fell forward on the bed. Patient states that he was able to walk with his cane this morning and did well with ambulation yesterday. He states he was discharged from the hospital on the 21 of March and he has not been quite himself since. He denies unilateral weakness, headache, nausea, vomiting, fever, chills, dysuria, hematuria, cough or cold symptoms, or injuries. His states that he has been having some back pain issues lately and his neurosurgeon was going to order some outpatient testing. There is no ordered tests in our system. Patient states he has had abdominal pain and poor appetite. MD Complaint: generalized weakness and difficulty walking Onset (ago): hour(s) Duration: constant and progressively worsening Location: generalized Relieving factors: none Exacerbating factors: none Associated symptoms: denies other symptoms Related Data Home Medications Medication Instructions Recorded Confirmed aspirin 81 mg tablet,delayed 81 mg PO DAILY 08/19/19 05/21/21 release metoprolol tartrate 100 mg tablet 50 mg PO BID tablet 08/19/19 05/21/21 carbidopa-levodopa 2.5 tablet PO QID 02/26/21 05/21/21 doxazosin 1 mg PO HS 02/26/21 05/21/21 melatonin 3 mg PO TID 02/26/21 05/21/21 apixaban [Eliquis] 5 mg PO BID 03/29/21 05/21/21 Allergies Allergy/AdvReac Type Severity Reaction Status Date / Time No Known Allergies Allergy Unverified 02/26/21 10:26 Review of Systems Review of Systems: All systems reviewed & are unremarkable except as noted in HPI and below Constitutional: Constitutional: Denies chills, Denies fatigue, Denies fever(s) and Reports weakness Eyes: Eyes: Denies change in vision and Denies photophobia ENT: Denies nasal congestion and Denies sore throat Cardiovascular: Cardiovascular: Denies chest pain and Denies radiating jaw, neck or arm pain Respiratory: Respiratory: Denies cough, Denies dyspnea and Denies wheezing Gastrointestinal: Gastrointestinal: Denies abdominal pain, Denies diarrhea, Denies nausea and Denies vomiting Genitourinary: Genitourinary: Denies hematuria and Denies dysuria Musculoskeletal: Musculoskeletal: Denies back pain, Denies arthralgias and Denies joint swelling Integumentary/Breasts: Skin/Breast: Denies pruritus, Denies erythema and Denies rash Neurologic: Denies vertigo, Denies dizziness, Denies syncope, Denies headache(s), Denies focal weakness, Denies numbness and Reports weakness Allergic/Immunologic: Allergic/Immunologic: Denies lip swelling and Denies throat swelling [facility] Past Medical History Medical History (Updated 05/22/21 @ 00:43 by Zak Neil MD) Diverticulitis DVT (deep venous thrombosis) Kidney stone Pulmonary embolism Surgical History Surgical History (Updated 05/21/21 @ 21:55 by Zak Neil MD) H/O hernia repair Hx of CABG Family History Family History Grandparent Acute myocardial infarction Family history of arthritis Malignant neoplasm of prostate Mother Family history of arthritis Other Family history of hearing loss Social History Social History Smoking status: Never smoker Second hand tobacco smoke exposure: No Alcohol intake: current Gender identity (if verbalized by the patient): Male Exam Const: General: no acute distress and alert Nutritional Appearance: obese Orientation/consciousness: patient oriented x3 Limitations: no limitations HENMT: H
--- NOTE | 2021-05-21 21:49 | ECG_ITS ---
Measurements Intervals [place] Rate: 98 P: -16 W[place]: 251 QRS: 102 QRSD: 91 T: 26 QT: 365 QTc: 468 Interpretive Statements SINUS RHYTHM WITH FIRST DEGREE AV BLOCK LOW QRS VOLTAGE IN PRECORDIAL LEADS INCOMPLETE RIGHT BUNDLE BRANCH BLOCK MINIMAL Q WAVES- INFERIOR LEADS CANNOT RULE OUT SEPTAL INFARCT, AGE INDETERMINATE BORDERLINE T WAVE ABNORMALITY- DIFFUSE LEADS BASELINE ARTIFACT- I, II, III, AVR, AVL, AVF ABNORMAL ECG Electronically Signed On 05-22-2021 22:40:59 CDT by Aníbal Gottlieb D.O.
[2021-05-21 22:26] LABS: Basophils Absolute Auto 0.05 K/mm3 (0.00-0.10); Basophils Percent Auto 0.4 % (0.0-1.0); Eosinophils Absolute Auto 0.31 K/mm3 (0.02-0.50); Eosinophils Percent Auto 2.3 % (1.0-6.0); Hematocrit 41.1 % (37.0-46.0); Hemoglobin 13.5 g/dL (12.4-15.3); Immature Granulocyte Absolute 0.04 K/mm3 (0.00-0.00); Immature Granulocyte Percent A 0.3 % (0.0-0.0); Lymphocytes Absolute Auto 1.63 K/mm3 (1.10-4.50); Lymphocytes Percent Auto 12.2 % (18.0-42.0); Mean Corpuscular HGB Conc 32.8 g/dL (32.0-36.0); Mean Corpuscular Hemoglobin 29.7 pg (27.0-31.0); Mean Corpuscular Volume 90.3 fL (78.0-102.0); Mean Platelet Volume 8.7 fl (8.7-11.0); Monocytes Absolute Auto 1.31 K/mm3 (0.10-0.90); Monocytes Percent Auto 9.8 % (2.0-11.0); Platelet Count Result 188 K/mm3 (150-420); Red Blood Count 4.55 M/mm3 (4.70-6.10); Red Cell Distribution Width 13.5 % (11.6-14.4); White Blood Count 13.3 K/mm3 (4.8-10.8)
[2021-05-21 22:38] LABS: INR 1.1; Partial Thromboplastin Time 30.2 SEC (23.90-30.70); Prothrombin Time 12.1 Seconds (9.50-12.10)
[2021-05-21 22:45] LABS: Lactic Acid Reflex 1.5 mmol/L (0.4-2.0)
[2021-05-21 22:49] LABS: Alanine Aminotransferase 14 U/L (16-63); Albumin Level 3.2 g/dL (3.4-5.0); Alkaline Phosphatase 80 U/L (46-116); Anion Gap 11 mmol/L (8-16); Aspartate Amino Transferase 12 U/L (15-37); Bilirubin,Total 0.7 mg/dL (0.00-1.00); Blood Urea Nitrogen 18 mg/dL (7-18); Calcium 8.8 mg/dL (8.5-10.1); Carbon Dioxide 26 mmol/L (21-32); Chloride 105 mmol/L (98-108); Estimated CRCL calculation 68 ml/min; Estimated Glomerular Filt Rate > 60; Glucose 120 mg/dL (70-99); Osmolality Calculated 296 mOsm/kg (285-295); Potassium 3.8 mmol/L (3.5-5.1); Sodium 142 mmol/L (136-145); Total Protein 6.9 g/dL (6.4-8.2)
[2021-05-21 22:51] LABS: CRP 10.7 mg/dL (0.0-0.9); Magnesium 1.7 mg/dL (1.8-2.4); Troponin I 5.6 ng/L (0.00-60.4)
[2021-05-21 22:52] LABS: NT Pro B Type Natriuretic Pept 117 pg/mL (0-125)
[2021-05-21 23:04] LABS: Add Urine Microscopic? YES; Appearance Urine Clear (Clear); Bilirubin Urine Negative (Negative); Blood Urine Negative (Negative); Color Urine Yellow (Yellow); Glucose Urine UA Negative (Negative); Ketones Urine 1+ (Negative); Leukocyte Esterase Ur Negative LEU/UL (Negative); Nitrate Urine Negative (Negative); Protein Urine Negative (Negative)
[2021-05-21 23:13] LABS: Bacteria Urine 1+ /hpf; Mucus Urine Heavy /lpf; RBC Urine 0-2 /hpf (0-2); Squamous Epithelial Cell Urine Occasional /hpf (Few); WBC Urine 0-3 /hpf (0-3)
[2021-05-21] MEDS: SODIUM CHLORIDE 0.9% IV 1,000 ML 999 ML IV CONT (23:22)
[2021-05-21 23:56] LABS: SARS-CoV-2 RNA PCR Negative (Negative)
--- NOTE | 2021-05-22 00:15 | PC.NURSE ---
pt resting per recliner. at bedside.
[2021-05-22] MEDS: SODIUM CHLORIDE 0.9% IV 1,000 ML 100 ML IV CONT (00:44)
[2021-05-22] MEDS: CIPROFLOXACIN 400 MG/D5W 200ML 200 ML 200 MG IVPB ×2 (00:44→13:06)
[2021-05-22 01:19] VITALS: BP 132/76; PULSE 90; RESP 20; TEMP 37.1; O2SAT 96
[2021-05-22 02:14] VITALS: BMI 36.7
--- NOTE | 2021-05-22 02:18 | PC.NURSE ---
Patient admitted to room 207 per recliner from ER, is alert and oriented and has no c/o pain.
[2021-05-22] MEDS: MAGNESIUM SULF 2 GM/WATER 50ML 2 GM/50 ML BAG IVPB (02:41)
[2021-05-22] MEDS: metroNIDAZOLE 500 MG/ISO 100ML 500 MG/100 ML BAG 100 MG IVPB ×4 (03:45→21:27)
[2021-05-22 05:36] LABS: Basophils Absolute Auto 0.03 K/mm3 (0.00-0.10); Basophils Percent Auto 0.3 % (0.0-1.0); Eosinophils Absolute Auto 0.33 K/mm3 (0.02-0.50); Eosinophils Percent Auto 2.9 % (1.0-6.0); Hematocrit 39.3 % (37.0-46.0); Hemoglobin 12.6 g/dL (12.4-15.3); Immature Granulocyte Absolute 0.05 K/mm3 (0.00-0.00); Immature Granulocyte Percent A 0.4 % (0.0-0.0); Lymphocytes Absolute Auto 1.34 K/mm3 (1.10-4.50); Lymphocytes Percent Auto 11.8 % (18.0-42.0); Mean Corpuscular HGB Conc 32.1 g/dL (32.0-36.0); Mean Corpuscular Hemoglobin 29.2 pg (27.0-31.0); Mean Corpuscular Volume 91.2 fL (78.0-102.0); Mean Platelet Volume 8.6 fl (8.7-11.0); Monocytes Absolute Auto 1.06 K/mm3 (0.10-0.90); Monocytes Percent Auto 9.3 % (2.0-11.0); Neutrophils Absolute Auto 8.6 K/mm3 (1.7-7.2); Neutrophils Percent Auto 75.3 % (50.0-70.0); Platelet Count Result 178 K/mm3 (150-420); Red Blood Count 4.31 M/mm3 (4.70-6.10); Red Cell Distribution Width 13.6 % (11.6-14.4); White Blood Count 11.4 K/mm3 (4.8-10.8)
[2021-05-22 05:57] LABS: Alanine Aminotransferase 15 U/L (16-63); Albumin Level 2.8 g/dL (3.4-5.0); Alkaline Phosphatase 73 U/L (46-116); Anion Gap 10 mmol/L (8-16); Aspartate Amino Transferase < 10 U/L (15-37); Bilirubin,Total 0.7 mg/dL (0.00-1.00); Blood Urea Nitrogen 17 mg/dL (7-18); Calcium 8.2 mg/dL (8.5-10.1); Carbon Dioxide 26 mmol/L (21-32); Chloride 105 mmol/L (98-108); Estimated CRCL calculation 75 ml/min; Estimated Glomerular Filt Rate > 60; Glucose 116 mg/dL (70-99); Osmolality Calculated 294 mOsm/kg (285-295); Potassium 3.7 mmol/L (3.5-5.1); Sodium 141 mmol/L (136-145); Total Protein 6.3 g/dL (6.4-8.2)
[2021-05-22] MEDS: CARBIDOPA/LEVODOPA 25/100 MG TABLET 2.5 TABLET PO ×4 (05:59→21:26)
[2021-05-22 08:00] VITALS: BP 119/71; PULSE 78; RESP 14; TEMP 36.2; O2SAT 98
[2021-05-22 08:01] LABS: Glucose Point of Care 136 mg/dl (65-105)
[2021-05-22 10:01] LABS: Magnesium 2.3 mg/dL (1.8-2.4)
[2021-05-22] MEDS: APIXABAN 2.5 MG TABLET 5 MG PO ×2 (13:06→21:25)
--- NOTE | 2021-05-22 13:20 | PM.IMHP ---
H&P: HPI History of Present Illness Date/Time: 05/22/21 13:20 this is a 66-year-old male who presented to urgent care with complaints of weakness. Patient has a past medical history of Parkinson's disease, CAD, pulmonary emboli, and diverticulitis.according to patient yesterday while attempting to get up he experienced weakness and fell and was unable to stand upright or ambulate which is unusual for him he has never experienced anything like this before. Patient is well-known to our physical therapy department and inform me that every since patient has been taken off of a particular medication he has been declining. I spoke with patient and he noted that his neurologist took him off of Mirapex due to excess weight gain. Patient admits that his condition has slowly worsened since his discontinuation of this medication. Patient also complains of abdominal pain that started yesterday vital signs blood pressure 119/71, pulse 78, 14, 97.1, 98% on room air, WBC 11.4, hemoglobin 12.6, hematocrit 39.3, platelets 178, sodium 142, potassium 3.8, BUN 18, creatinine 1.12, glucose 120, lactic acid 1.5, magnesium 1.7, CRP 10.7, Covid negative, CT of the abdomen indicates diverticulitis, CT of the head no acute findings, EKG sinus rhythm with first-degree AV block heart rates in the 60s. Patient being admitted for diverticulitis and generalized weakness <LAW Moore - Last Filed: 05/22/21 13:34> Chief Complaint: Weakness, abdominal pain <LAW Moore - Last Filed: 05/22/21 13:34> Review of Systems Review of Systems: A 14 organ system Review of Systems was performed and pertinent positives included in the HPI, otherwise remaining ROS is negative. <LAW Moore - Last Filed: 05/22/21 13:34> [facility] Past Medical History Medical History: Medical History (Updated 05/22/21 @ 13:31 by LAW Moore) Diverticulitis DVT (deep venous thrombosis) Kidney stone Pulmonary embolism <LAW Moore - Last Filed: 05/22/21 13:34> Surgical History Surgical History: Surgical History (Updated 05/21/21 @ 21:55 by Zak Neil MD) H/O hernia repair Hx of CABG <LAW Moore - Last Filed: 05/22/21 13:34> Family History Family History: Family History Grandparent Acute myocardial infarction Family history of arthritis Malignant neoplasm of prostate Mother Family history of arthritis Other Family history of hearing loss <LAW Moore - Last Filed: 05/22/21 13:34> Social History Social History: Social History Smoking status: Never smoker Second hand tobacco smoke exposure: No Alcohol intake: never Substance use: never Gender identity (if verbalized by the patient): Male Spiritual care concerns: No <LAW Moore Last Filed: 05/22/21 13:34> Meds Home Medications and Allergies Home medications: Home Medications Medication Instructions Recorded Confirmed Type aspirin 81 mg tablet,delayed 81 mg PO DAILY 08/19/19 05/21/21 History release metoprolol tartrate 100 mg tablet 50 mg PO BID tablet 08/19/19 05/21/21 History atorvastatin 40 mg tablet 40 mg PO DAILY #90 tablet 01/09/20 05/21/21 Rx probenecid 500 mg tablet 500 mg PO DAILY #90 tablet 07/12/20 05/21/21 Rx metformin 500 mg tablet 500 mg PO BID #180 tablet 08/23/20 05/21/21 Rx carbidopa-levodopa 2.5 tablet PO QID 02/26/21 05/21/21 History doxazosin 1 mg PO HS 02/26/21 05/21/21 History melatonin 3 mg PO TID 02/26/21 05/21/21 History apixaban [Eliquis] 5 mg PO BID 03/29/21 05/21/21 History <LAW Moore - Last Filed: 05/22/21 13:34> Allergies/Adverse reactions: Allergies Allergy/AdvReac Type Severity Reaction Status Date / Time No Known Allergies Allergy Unverified 02/26/21 10:26 <LAW Moore - Last Filed: 1
[2021-05-22] MEDS: SODIUM CHLORIDE 0.9% IV 1,000 ML 100 ML (14:48)
[2021-05-22 16:00] VITALS: BP 122/74; PULSE 78; RESP 14; TEMP 36.6; O2SAT 98
[2021-05-22 16:56] VITALS: PULSE 76
[2021-05-22] MEDS: METOPROLOL TARTRATE 50 MG TAB PO (16:56)
[2021-05-22] MEDS: ACETAMINOPHEN 325 MG TABLET 650 MG PO (20:00)
[2021-05-22] MEDS: DOXAZOSIN MESYLATE 1 MG TABLET PO (21:34)
--- NOTE | 2021-05-22 21:51 | PC.NURSE ---
Patient up in chair. Alert and oriented x3. IV site without redness, swelling, drainage. IV dressing clean, dry, intact. IV flushes without difficulty. Patient able to stand holding walker to urinate in urinal. Sleeps in chair with feet elevated. Call light and possessions within reach.
[2021-05-23] VITALS: BP 117/72; PULSE 62; RESP 18; TEMP 35.9; O2SAT 98
[2021-05-23] MEDS: CIPROFLOXACIN 400 MG/D5W 200ML 200 ML 200 MG IVPB ×2 (00:37→13:02)
[2021-05-23] MEDS: ACETAMINOPHEN 325 MG TABLET 650 MG PO ×3 (02:06→21:09)
[2021-05-23] MEDS: metroNIDAZOLE 500 MG/ISO 100ML 500 MG/100 ML BAG 100 MG IVPB ×4 (03:39→22:04)
[2021-05-23 05:22] LABS: Hematocrit 37.3 % (37.0-46.0); Hemoglobin 11.7 g/dL (12.4-15.3); Mean Corpuscular HGB Conc 31.4 g/dL (32.0-36.0); Mean Corpuscular Hemoglobin 28.8 pg (27.0-31.0); Mean Corpuscular Volume 91.9 fL (78.0-102.0); Mean Platelet Volume 8.9 fl (8.7-11.0); Platelet Count Result 181 K/mm3 (150-420); Red Blood Count 4.06 M/mm3 (4.70-6.10); Red Cell Distribution Width 13.5 % (11.6-14.4); White Blood Count 7.7 K/mm3 (4.8-10.8)
[2021-05-23 05:39] LABS: Alanine Aminotransferase 10 U/L (16-63); Albumin Level 2.8 g/dL (3.4-5.0); Alkaline Phosphatase 68 U/L (46-116); Anion Gap 9 mmol/L (8-16); Aspartate Amino Transferase < 10 U/L (15-37); Bilirubin,Total 0.5 mg/dL (0.00-1.00); Blood Urea Nitrogen 11 mg/dL (7-18); Calcium 8.5 mg/dL (8.5-10.1); Carbon Dioxide 27 mmol/L (21-32); Chloride 106 mmol/L (98-108); Estimated CRCL calculation 71 ml/min; Estimated Glomerular Filt Rate > 60; Glucose 110 mg/dL (70-99); Magnesium 2.1 mg/dL (1.8-2.4); Osmolality Calculated 294 mOsm/kg (285-295); Potassium 3.8 mmol/L (3.5-5.1); Sodium 142 mmol/L (136-145); Total Protein 6.6 g/dL (6.4-8.2)
[2021-05-23 05:40] LABS: CRP 17.4 mg/dL (0.0-0.9)
[2021-05-23] MEDS: CARBIDOPA/LEVODOPA 25/100 MG TABLET 2.5 TABLET PO ×4 (06:53→17:05)
[2021-05-23 08:00] VITALS: BP 144/72; PULSE 77; RESP 18; TEMP 36.4; O2SAT 96
[2021-05-23 08:48] VITALS: PULSE 70
[2021-05-23] MEDS: APIXABAN 2.5 MG TABLET 5 MG PO ×2 (08:48→21:05)
[2021-05-23] MEDS: METOPROLOL TARTRATE 50 MG TAB PO ×2 (08:48→21:04)
[2021-05-23] MEDS: ASPIRIN 81 MG ENTERIC TABLET PO (08:48)
[2021-05-23] MEDS: ATORVASTATIN 40 MG TABLET PO (08:49)
[2021-05-23 11:58] LABS: Glucose Point of Care 101 mg/dl (65-105)
--- NOTE | 2021-05-23 12:05 | PHAR ---
SPOKE W/JOURNEYMAN PIPEFITTER, METFROMIN WAS NOT RESTARTED IN CASE PT NEEDED ANY TESTING THAT REQUIRED DYE. ON SSI. TLS
--- NOTE | 2021-05-23 13:02 | WPDPN ---
Progress Note: A&P Assessment and Plan (1) Diverticulitis: Code(s): K57.92 - Diverticulitis of intestine, part unspecified, without perforation or abscess without bleeding Status: Acute Assessment and Plan: CT of the abdomen indicates diverticular Patient has a history of diverticulitis Blood culture pending Clear liquid diet advance diet as tolerated CRP elevated 10.7>17.4 (2) Hypomagnesemia: Code(s): E83.42 - Hypomagnesemia Status: Acute Assessment and Plan: Resolved Magnesium 1.7>2.3 (3) Weakness: Code(s): R53.1 - Weakness Status: Acute Assessment and Plan: ? Exhibit tolerance during physical activity as evidenced by a normal fluctuation of vital signs during physical activity. ? Patient will be ability to perform required activities of daily living. ? Provide appropriate nutrition for healing and strength. ? Use appropriate to prevent falls. ? Continue physical therapy/occupational therapy. Will see if patient qualifies for swing bed he has agreed to swing qualifies (4) Pulmonary emboli: Code(s): I26.99 - Other pulmonary embolism without acute cor pulmonale Status: Acute Assessment and Plan: Continue Eliquis (5) Parkinsons: Code(s): G20 - Parkinson's disease Status: Acute Assessment and Plan: Continue carbo-levo waiting regional loss prevention manager back for Dr.Pietro Polanco [phone] concerning mirapex and medication adjustment. Subjective Date/time seen: 05/23/21 13:02 patient notes that he did not sleep well overnight due to the environment. PT/OT evaluated it was determined the patient was not appropriate for swing bed he will discharge and continue his outpatient. Patient condition has improved. Plan to discharge patient. The patient denies SOB, CP, palpitation, extremity numbness, lightheadedness, dizziness, constipation, diarrhea, chills, or fever. Review of Systems Review of Systems: A 14 organ system Review of Systems was performed and pertinent positives included in the HPI, otherwise remaining ROS is negative. Exam Narrative: GENERAL: This is a well-nourished, well-developed patient, in no apparent distress. HEAD: normocephalic, atraumatic. EYES: PERRL. Sclera clear/white. Vision is grossly intact. EARS: External ears normal, auditory canals clear and without drainage, TMs normal without perforation. Hearing grossly intact. NOSE: External nose normal with no obvious nasal discharge, nares without redness, no rhinorrhea. THROAT: Mucous membranes moist, posterior pharynx clear. NECK: Neck supple, non-tender without lymphadenopathy, masses or thyromegaly. CARDIOVASCULAR: Regular rate and rhythm without murmurs, gallops, or rubs. RESPIRATORY: Clear to auscultation. Breath sounds equal bilaterally. No wheezes, rales, or rhonchi. GASTROINTESTINAL: Abdomen soft, non-tender, nondistended. Bowel sounds are active. No hepato-splenomegaly, or palpable masses. No guarding. SKIN: warm, intact with no suspicious lesions or rash, good texture and turgor. NEURO: awake, alert, and oriented to person, place and time. There were no obvious focal neurologic abnormalities. EXTREMITIES: Normal range of motion. No edema. No calf tenderness. Negative Homans sign bilaterally. BACK: Nontender without deformity or crepitance. No flank tenderness. Objective Data Vital Signs Vital Signs: Vital Signs - 24 hr 05/22/21 16:00 05/22/21 16:56 05/23/21 00:00 Temperature 97.8 F 96.7 F L Pulse Rate 78 76 62 Respiratory Rate 14 18 Blood Pressure 122/74 117/72 Pulse Oximetry 98 98 05/23/21 08:00 05/23/21 08:48 Temperature 97.5 F L Pulse Rate 77 70 Respiratory Rate 18 Blood Pressure 144/72 H Pulse Oximetry 96 Intake/Output Intake/Output: Intake & Output 05/20/21 05/21/21 05/22/21 05/23/21 23:59 23:59 23:59 23:59 Intake Total 3805 1720 Output Total 1520 100 Balance 2285 1620 Meds/Results Medications: Act
[2021-05-23 16:00] VITALS: BP 144/72; PULSE 77; RESP 18; TEMP 36.4; O2SAT 96
[2021-05-23 17:20] LABS: Glucose Point of Care 96 mg/dl (65-105)
--- NOTE | 2021-05-23 19:03 | PC.NURSE ---
Completed bedside change of shift report, and updated board. Patient is doing well today, once carbidopa/Levodopa medication was given on time. Patient has difficulty with his legs when this medication is late. Patient indicated he was not in any pain. He is resting comfortably in the recliner, with no signs of pain or discomfort. Patient was having difficulty with the sound levels on the TV, resulting in a change in controller. He is no longer having any difficulty.
[2021-05-23 21:04] VITALS: PULSE 68
[2021-05-23] MEDS: DOXAZOSIN MESYLATE 1 MG TABLET PO (21:05)
[2021-05-23 21:18] LABS: Glucose Point of Care 113 mg/dl (65-105)
[2021-05-23] MEDS: MELATONIN 3 MG TABLET PO (22:06)
[2021-05-24] VITALS: BP 128/67; PULSE 63; RESP 20; TEMP 36.5; O2SAT 94
[2021-05-24] MEDS: traZODone HCL 50 MG TABLET PO (01:16)
--- NOTE | 2021-05-24 01:40 | PC.NURSE ---
Patient lost IV access immediately prior to ciprofloxacin delivery. IV was attempted by charge nurse, and nurse assigned to patient. Neither was successful. ED nurse will be contacted when they are available to place IV. Medication will be given when IV is available.
--- NOTE | 2021-05-24 02:26 | PC.NURSE ---
Dr Neil notified of nurses unable to start new IV site on patient. New order received.
--- NOTE | 2021-05-24 02:44 | PC.NURSE ---
Patient rang to use the toilet, and to get repositioned in the recliner. Patient was able to ambulate to and from the toilet with no difficulty. Patient is not very comfortable in the recliner, but refuses to try the bed. Attempted to use pillows to make recliner more comfortable, but not very successful. Patient has not yet been asleep.
[2021-05-24] MEDS: metroNIDAZOLE 250 MG TABLET 500 MG PO (03:12)
[2021-05-24] MEDS: CIPROFLOXACIN 500 MG TAB PO ×2 (03:12→09:30)
[2021-05-24] MEDS: CARBIDOPA/LEVODOPA 25/100 MG TABLET 2.5 TABLET PO ×2 (05:49→09:29)
--- NOTE | 2021-05-24 06:10 | PC.NURSE ---
Patient rounding completed. Patient asked to go to the toilet. He was able to walk, using his walker, to and from the toilet with stand-by assist. Patient went back to the recliner, and attempted to get some sleep.
[2021-05-24 07:42] VITALS: BP 157/83; PULSE 77; RESP 17; TEMP 36.2; O2SAT 96
[2021-05-24 07:43] LABS: Glucose Point of Care 109 mg/dl (65-105)
[2021-05-24 09:29] VITALS: PULSE 77
[2021-05-24] MEDS: ASPIRIN 81 MG ENTERIC TABLET PO (09:29)
[2021-05-24] MEDS: METOPROLOL TARTRATE 50 MG TAB PO (09:29)
[2021-05-24] MEDS: APIXABAN 2.5 MG TABLET 5 MG PO (09:29)
[2021-05-24] MEDS: ATORVASTATIN 40 MG TABLET PO (09:30)
[2021-05-24 11:36] LABS: Glucose Point of Care 111 mg/dl (65-105)
--- NOTE | 2021-05-24 12:05 | P.DS_ITS ---
DS: Admitting Diagnosis Discharge Date 05/24/2021 <Colt BrownSWETHA-C - Last Filed: 05/24/21 12:27> Admitting Diagnosis Diverticulitis <Colt BrownTERRYC - Last Filed: 05/24/21 12:27> DS: Discharge Diagnosis Discharge Diagnosis (1) Diverticulitis: Code(s): K57.92 - Diverticulitis of intestine, part unspecified, without perforation or abscess without bleeding <Colt BrownSWETHA-C - Last Filed: 05/24/21 12:27> Status: Acute <Colt BrownSWETHA-C - Last Filed: 05/24/21 12:27> Assessment and Plan: * CT of the abdomen indicates diverticular * Patient has a history of diverticulitis * Blood culture pending * Clear liquid diet advance diet as tolerated * CRP elevated 10.7>17.4 05/24/2021 Pt was able to tolerate meals and drink, no pain unless abdomen is palpated, will continue Flagyl and Cipro on DC home and will add Probiotic, Pt to follow up with PCP after DC, return to hospital if pain worsens, will write for pain medications <Colt BrownSWETHA-C - Last Filed: 05/24/21 12:27> (2) Hypomagnesemia: Code(s): E83.42 - Hypomagnesemia <Colt BrownSWETHA-C - Last Filed: 05/24/21 12:27> Status: Acute <Colt BrownSWETHA-C - Last Filed: 05/24/21 12:27> Assessment and Plan: * Resolved * Magnesium 1.7>2.3 05/24/2021 on 05/23/2021 level 2.1 <Colt BrownSWETHA-C - Last Filed: 05/24/21 12:27> (3) Weakness: Code(s): R53.1 - Weakness <Colt BrownSWETHA-C - Last Filed: 05/24/21 12:27> Status: Acute <Colt BrownSWETHA-C - Last Filed: 05/24/21 12:27> Assessment and Plan: ? Exhibit tolerance during physical activity as evidenced by a normal fluctuation of vital signs during physical activity. ? Patient will be ability to perform required activities of daily living. ? Provide appropriate nutrition for healing and strength. ? Use appropriate to prevent falls. ? Continue physical therapy/occupational therapy. * Will see if patient qualifies for swing bed he has agreed to swing qualifies 05/24/2021 Pt was walking in the ramires with PT with no obvious issues, Pt with have PT as outpatient which is already in place. <EUGENIA Serna - Last Filed: 05/24/21 12:27> (4) Pulmonary emboli: Code(s): I26.99 - Other pulmonary embolism without acute cor pulmonale <EUGENIA Serna - Last Filed: 05/24/21 12:27> Status: Acute <EUGENIA Serna - Last Filed: 05/24/21 12:27> Assessment and Plan: * Continue Eliquis 05/24/2021 No changes to medications <EUGENIA Serna - Last Filed: 05/24/21 12:27> (5) Parkinsons: Code(s): G20 - Parkinson's disease <EUGENIA Serna - Last Filed: 05/24/21 12:27> Status: Acute <EUGENIA Serna - Last Filed: 05/24/21 12:27> Assessment and Plan: * Continue carbo-levo * waiting telephone maintainer back for Dr. Memo Polanco [phone] concerning mirapex and medication adjustment. 05/24/2021 Pt to follow up with PCP within 1 week. <EUGENIA Serna - Last Filed: 05/24/21 12:27> DS: Summary Hospital Course Hospital Course: Abdominal pain resolved, tolerating PO fluids and foods <EUGENIA Serna - Last Filed: 05/24/21 12:27> Time Spent with Patient Time attestation: Total time spent providing and/or coordinating discharge services: < 30 minutes <EUGENIA Serna - Last Filed: 05/24/21 12:27> Exam Const: General: cooperative, comfortable, no acute distress, alert, awake, Physically active
--- NOTE | 2021-05-24 12:05 | PM.DS ---
DS: Admitting Diagnosis Discharge Date 05/24/2021 <Colt SalterTERRY leonC - Last Filed: 05/24/21 12:27> Admitting Diagnosis Diverticulitis <Colt SalterEUGENIA leon - Last Filed: 05/24/21 12:27> DS: Discharge Diagnosis Discharge Diagnosis (1) Diverticulitis: Code(s): K57.92 - Diverticulitis of intestine, part unspecified, without perforation or abscess without bleeding <Colt SheltonTERRY HernandezC - Last Filed: 05/24/21 12:27> Status: Acute <Colt SalterSWETHA leon-C - Last Filed: 05/24/21 12:27> Assessment and Plan: CT of the abdomen indicates diverticular Patient has a history of diverticulitis Blood culture pending Clear liquid diet advance diet as tolerated CRP elevated 10.7>17.4 05/24/2021 Pt was able to tolerate meals and drink, no pain unless abdomen is palpated, will continue Flagyl and Cipro on DC home and will add Probiotic, Pt to follow up with PCP after DC, return to hospital if pain worsens, will write for pain medications <Colt SalterSWETHA leon-C - Last Filed: 05/24/21 12:27> (2) Hypomagnesemia: Code(s): E83.42 - Hypomagnesemia <Colt SalterSWETHA leon-C - Last Filed: 05/24/21 12:27> Status: Acute <Colt SheltonErik Brown APN-C - Last Filed: 05/24/21 12:27> Assessment and Plan: Resolved Magnesium 1.7>2.3 05/24/2021 on 05/23/2021 level 2.1 <Colt Stone SWETHA Brown-C - Last Filed: 05/24/21 12:27> (3) Weakness: Code(s): R53.1 - Weakness <Colt Stone TERRY BrownC - Last Filed: 05/24/21 12:27> Status: Acute <Colt SheltonErik Brown APN-C - Last Filed: 05/24/21 12:27> Assessment and Plan: ? Exhibit tolerance during physical activity as evidenced by a normal fluctuation of vital signs during physical activity. ? Patient will be ability to perform required activities of daily living. ? Provide appropriate nutrition for healing and strength. ? Use appropriate to prevent falls. ? Continue physical therapy/occupational therapy. Will see if patient qualifies for swing bed he has agreed to swing qualifies 05/24/2021 Pt was walking in the ramires with PT with no obvious issues, Pt with have PT as outpatient which is already in place. <EUGENIA Serna - Last Filed: 05/24/21 12:27> (4) Pulmonary emboli: Code(s): I26.99 - Other pulmonary embolism without acute cor pulmonale <EUGENIA Serna - Last Filed: 05/24/21 12:27> Status: Acute <EUGENIA Serna - Last Filed: 05/24/21 12:27> Assessment and Plan: Continue Eliquis 05/24/2021 No changes to medications <EUGENIA Serna - Last Filed: 05/24/21 12:27> (5) Parkinsons: Code(s): G20 - Parkinson's disease <EUGENIA Serna - Last Filed: 05/24/21 12:27> Status: Acute <EUGENIA Serna - Last Filed: 05/24/21 12:27> Assessment and Plan: Continue carbo-levo waiting crop nutrition scientist back for Dr. Memo Polanco [phone] concerning mirapex and medication adjustment. 05/24/2021 Pt to follow up with PCP within 1 week. <EUGENIA Serna - Last Filed: 05/24/21 12:27> DS: Summary Hospital Course Hospital Course: Abdominal pain resolved, tolerating PO fluids and foods <EUGENIA Serna - Last Filed: 05/24/21 12:27> Time Spent with Patient Time attestation: Total time spent providing and/or coordinating discharge services: < 30 minutes <EUGENIA Serna - Last Filed: 05/24/21 12:27> Exam Const: General: cooperative, comfortable, no acute distress, alert, awake, Physically active and tired appearing (Pt states he did not sleep last night) <EUGENIA Serna - Last Filed: 05/24/21 12:27> Nutritional Appearance: obese <EUGENIA Serna - Last Filed: 05/24/21 12:27> Resp: Effort & Inspection: normal respiratory effort, no cough and not labored <EUGENIA Serna - Last Filed: 05/24/21 12:27> Auscultation: clear to auscultation bilaterall
--- NOTE | 2021-05-24 13:15 | PC.NURSE ---
Discharge instructions reviewed with patient and spouse. Home medication returned and printed script given to patient. All questions answered. Pt transported via wheelchair to front entrance for discharge.
--- NOTE | 2021-05-31 15:14 | PC.NURSE ---
Unable to contact for discharge call back.
== END 2021-05-24 13:15 | disposition home health service (06) | DRG 392 ==
LOC: CHSED 21:49 → CHS2ND 05-22 00:45
PROVIDERS: Nurse Practitioner; Admitting Provider Emergency Medicine; Emergency Provider Emergency Medicine; PCP Family Medicine; Visit Provider Emergency Medicine
DX: K57.32 Diverticulitis of large intestine without perforation or abscess without bleeding (principal); G20 Parkinson's disease; E83.42 Hypomagnesemia; I25.10 Atherosclerotic heart disease of native coronary artery without angina pectoris; Z86.718 Personal history of other venous thrombosis and embolism; Z79.01 Long term (current) use of anticoagulants; Z86.711 Personal history of pulmonary embolism; Z95.1 Presence of aortocoronary bypass graft
CPT/HCPCS: 36415; 70450; 71045; 74177; 80053; 81001; 82948; 83605; 83735; 83880; 84484; 85025; 85027; 85610; 85730; 86140; 87040; 93005; 96360; 97161; 97165; 97530; 97535; 99285; A9270; C9803; J0744; J3475; J7030; Q9967; U0003; U0005

== ENCOUNTER 2021-06-08 10:23 | Outpatient (CLI) | payer MEDICARE, SELFPAY ==
--- NOTE | ~2021-06-08 | CT_ITS ---
EXAMINATION: CT lumbar spine wo con DATE: 06/08/2021 11:07 INDICATION: Lumbar stenosis and spondylosis. TECHNIQUE: Computed tomography (CT) of the lumbar spine was performed without intravenous contrast. A utomated exposure control and iterative reconstruction technique were employed. The dose-length produ ct was 1263.06 mGy-cm. COMPARISON: Lumbar spine CT 11/24/2020, MRI 11/24/2020 FINDINGS: Bone alignment is normal. There are Schmorl's nodes at most levels. There is mild chronic a nterior wedging of T11-L2 vertebral bodies. There is mildly decreased disc height at L3-L4, severely decreased disc height at L4-L5, and moderately decreased disc at L5-S1 with endplate remodeling. The following disc levels are specifically discussed: L1-L2: The disc does not extend beyond the endplate margin. There is mild bilateral facet joint osteo arthritis. There is no neural foraminal stenosis. There is no central canal stenosis. L2-L3: The disc is mildly bulging. There is mild bilateral facet joint osteoarthritis. There is mild bilateral neural foraminal stenosis. There is no central canal stenosis. L3-L4: The disc is bulging. There is mild bilateral facet joint osteoarthritis. There is moderate jenny ateral neural foraminal stenosis. There is mild central canal stenosis. L4-L5: The disc is bulging. There is severe bilateral facet joint osteoarthritis. There is moderate b ilateral neural foraminal stenosis. There is mild central canal stenosis. L5-S1: The disc is bulging. There is severe bilateral facet joint osteoarthritis. There is moderate b ilateral neural foraminal stenosis. There is mild central canal stenosis. IMPRESSION: 1. Severe lumbar spondylosis, stable from 11/24/2020. Reviewed, dictated and finalized at location A. [employer]
== END 2021-06-08 10:24 | disposition home or self-care (01) ==
LOC: CHSIMG 10:25
PROVIDERS: PCP Family Medicine; Visit Provider Nurse Practitioner Acute Care
DX: M89.9 Disorder of bone, unspecified (principal)
CPT/HCPCS: 72131

== ENCOUNTER 2021-06-11 09:04 | Outpatient (CLI) | payer MEDICARE, SELFPAY ==
--- NOTE | ~2021-06-11 | MR_ITS ---
EXAMINATION: MR cervical spine wo con DATE: 06/11/2021 09:59 INDICATION: Neck pain. Cervical spinal stenosis. Numbness. TECHNIQUE: Magnetic resonance imaging (MRI) of the cervical spine was performed without intravenous c ontrast. Sequences included sagittal T2-weighted FSE, sagittal T2-weighted FS FSE, sagittal T1-weight ed FSE, axial MERGE, and axial T2-weighted FSE. COMPARISON: None FINDINGS: Bone alignment is normal. Vertebral body heights are normal. There is severely decreased di sc height at C3-C4, moderately decreased disc height at C4-C5, and severely decreased disc height at C5-C6 and C6-C7 with endplate remodeling. There is increased T2-weighted signal intensity in the spin al cord at C3-C4, consistent with myelomalacia. The following disc levels are specifically discussed: C2-C3: There is a central extrusion. There is mild right uncovertebral joint osteoarthritis. There is severe bilateral facet joint osteoarthritis. There is mild right neural foraminal stenosis. There is mild central canal stenosis with ventral indentation of the spinal cord. C3-C4: The disc is bulging. There is severe bilateral uncovertebral joint osteoarthritis. There is se amilcar bilateral facet joint osteoarthritis. There is severe bilateral neural foraminal stenosis. There is severe central canal stenosis with ventral and dorsal indentation of the spinal cord. C4-C5: The disc is bulging. There is moderate right and severe left uncovertebral joint osteoarthriti s. There is severe bilateral facet joint osteoarthritis. There is moderate bilateral neural foraminal stenosis. There is mild central canal stenosis with ventral indentation of the spinal cord. C5-C6: The disc is bulging. There is severe bilateral uncovertebral joint osteoarthritis. There is mo derate bilateral facet joint osteoarthritis. There is mild right and moderate left neural foraminal s tenosis. There is mild central canal stenosis with ventral indentation of spinal cord. C6-C7: The disc is bulging. There is severe bilateral uncovertebral joint osteoarthritis. There is mi ld bilateral facet joint osteoarthritis. There is mild right and moderate left neural foraminal steno sis. There is mild central canal stenosis with ventral indentation of the spinal cord. C7-T1: The disc is bulging. There is no uncovertebral joint osteoarthritis. There is mild right and s evere left facet joint osteoarthritis. There is mild bilateral neural foraminal stenosis. There is no central canal stenosis. IMPRESSION: 1. Myelomalacia at C3-C4. 2. Severe cervical spondylosis. Reviewed, dictated and finalized at location A. [employer]
== END 2021-06-11 09:05 | disposition home or self-care (01) ==
LOC: CHSLAB 09:05
PROVIDERS: PCP Family Medicine; Visit Provider Nurse Practitioner Acute Care
DX: M48.00 Spinal stenosis, site unspecified (principal)
CPT/HCPCS: 72141

== ENCOUNTER 2021-06-28 13:27 | Outpatient (RCR) | payer MEDICARE, SELFPAY ==
--- NOTE | 2021-06-28 11:58 | PTOPEVAL ---
Thank you for referring Fabian Lazar to [facility].? The patient is scheduled to be seen for therapy? ____x/week for ___ weeks. Please review, sign, date and return this plan of care JEAN-PAUL. I agree with and certify that the following plan of care is medically necessary. Referring Physician Date Admitting Provider: Attending Provider: Shamar Guillory MD Referring Provider: *PT Outpatient Evaluation Start: 06/28/21 11:00 Freq: Status: Active Protocol: Document 06/28/21 11:01 ACR (Rec: 06/28/21 11:57 ACR [id number]) Therapy Assessment Status Assessment Status Assessment Status Evaluation Outpatient Past Medical History Neurological History Hx Parkinson's Disease Yes Cardiovascular History Hx Cardiac Surgery Yes Hx Coronary Artery Bypass Graft Yes: 2019 Hx Deep Vein Thrombosis Yes Hx Hypercholesterolemia Yes Hx Hypertension Yes Respiratory History Hx Pulmonary Embolism Yes Hx Sleep Apnea Yes Gastrointestinal History Hx Hernia Yes Genitourinary History Hx Kidney Stones Yes Musculoskeletal History Hx Back Pain Yes Endocrine History Hx Diabetes Yes Evaluation Information Problem Diagnosis falls Onset 06/27/21 Subjective Information Patient reports that he went Query Text:As Reported By Patient/ for a follow up with his Family doctor and wanted him to continue skilled therapy so was given a new order. He reports no falls since being discharged from therapy last week. He still is very unsteady and weak. He goes to see the neurosurgeon in August for his neck and back . He reports difficulty with walking, steps, uneven ground, and any balance challenges. The patients goal is to ambulate safely with a cane. Prior Level of Function Activity Level (Last 3 Months) Occupation retired Hand Dominance Right Activity of Daily Living Ability Independent Indoor/Home Mobility Independent Community Mobility Independent Stairs Ability Needs Some Help Functional Cognition (Planning, Shopping Independent , Taking Medications) Cooking Yes Cleaning Yes Laundry Yes Shopping
--- NOTE | 2021-08-02 14:34 | PTOPEVAL ---
Thank you for referring Fabian Lazar to [facility].? The patient is scheduled to be seen for therapy? ____x/week for ___ weeks. Please review, sign, date and return this plan of care JEAN-PAUL. I agree with and certify that the following plan of care is medically necessary. Referring Physician Date Admitting Provider: Attending Provider: Shamar Guillory MD Referring Provider: *PT Outpatient Evaluation Start: 06/28/21 11:00 Freq: Status: Active Protocol: Document 07/15/21 11:12 ACR (Rec: 07/15/21 12:04 ACR [id number]) Therapy Assessment Status Assessment Status Assessment Status Progress Outpatient Past Medical History Neurological History Hx Parkinson's Disease Yes Cardiovascular History Hx Cardiac Surgery Yes Hx Coronary Artery Bypass Graft Yes: 2019 Hx Deep Vein Thrombosis Yes Hx Hypercholesterolemia Yes Hx Hypertension Yes Respiratory History Hx Pulmonary Embolism Yes Hx Sleep Apnea Yes Gastrointestinal History Hx Hernia Yes Genitourinary History Hx Kidney Stones Yes Musculoskeletal History Hx Back Pain Yes Endocrine History Hx Diabetes Yes Evaluation Information Problem Diagnosis unsteady gait Subjective Information Patient reports that since Query Text:As Reported By Patient/ beginning therapy he is doing Family a lot better when getting up and down out of a chair. He also feels a little steadier. He has not fallen 07/03/21. Pain Assessment Timing of Pain Assessment Timing of Pain Assessment Assessment Pain Scale Pain Scale Used Numeric (1 - 10) Self Report Pain Assessment Lower Back Reported Pain Level 3 Neck Reported Pain Level 0 Pain Score Pain Score 3,0: Self Report Interventions Used Interventions Used By Clinicians Activity or ADL's,Exercise Lower Extremity Muscle Strength Testing Hip Strength Right Hip Flexion Strength 5 Normal Left Hip Flexion Strength 5 Normal Knee Strength Right Knee Flexion Strength 5 Normal Knee Extension Strength 4+ Good + Left Knee Flexion Strength 4 Good Knee Extension Strength 4 Good Balance Assessment Tinetti Balance Assessment Sitting Balance Steady, safe Ability to Arise Able, w/o using arms Attempts to Arise Arises on 1st attempt Immediate Standing Balance Steady with support Standing Balance Steady, wide stance Nudged Response Staggers, catches self Standing with Eyes Closed
--- NOTE | 2021-08-18 15:58 | PTOPEVAL ---
Thank you for referring Fabian Lazar to [facility].? The patient is scheduled to be seen for therapy? ____x/week for ___ weeks. Please review, sign, date and return this plan of care JEAN-PAUL. I agree with and certify that the following plan of care is medically necessary. Referring Physician Date Admitting Provider: Attending Provider: Shamar Guillory MD Referring Provider: *PT Outpatient Evaluation Start: 06/28/21 11:00 Freq: Status: Active Protocol: Document 08/18/21 13:06 ACR (Rec: 08/18/21 13:57 ACR [id number]) Therapy Assessment Status Assessment Status Assessment Status Progress Outpatient Past Medical History Neurological History Hx Parkinson's Disease Yes Cardiovascular History Hx Cardiac Surgery Yes Hx Coronary Artery Bypass Graft Yes: 2019 Hx Deep Vein Thrombosis Yes Hx Hypercholesterolemia Yes Hx Hypertension Yes Respiratory History Hx Pulmonary Embolism Yes Hx Sleep Apnea Yes Gastrointestinal History Hx Hernia Yes Genitourinary History Hx Kidney Stones Yes Musculoskeletal History Hx Back Pain Yes Endocrine History Hx Diabetes Yes Evaluation Information Problem Diagnosis unsteady gait Onset 06/28/21 Subjective Information Patient states that since Query Text:As Reported By Patient/ beginning therapy he feels Family like he is able to get up and down out of a chair easier, his balance is a little better , and is able to perform the exercises here with better ease. Patient states that his balance is still off especially side to side, he has difficulty with activities using him arms such as putting on a jacket and taking a shower. He has difficulty with steps as well, but if he takes his time it is not too bad. Pain Assessment Timing of Pain Assessment Timing of Pain Assessment Assessment Pain Scale Pain Scale Used Numeric (1 - 10) Self Report Pain Assessment Lower Back Reported Pain Level 5 Neck Reported Pain Level 0 Pain Score Pain Score 5,0: Self Report Interventions Used Interventions Used By Clinicians Activity or ADL's,Exercise Balance Assessment Tinetti Balance Assessment Sitting Balance
--- NOTE | 2021-09-20 14:34 | PTOPEVAL ---
Thank you for referring Fabian Lazar to [facility].? The patient is scheduled to be seen for therapy? ____x/week for ___ weeks. Please review, sign, date and return this plan of care JEAN-PAUL. I agree with and certify that the following plan of care is medically necessary. Referring Physician Date Admitting Provider: Attending Provider: Shamar Guillory MD Referring Provider: *PT Outpatient Evaluation Start: 06/28/21 11:00 Freq: Status: Active Protocol: Document 09/20/21 13:20 [facility] (Rec: 09/20/21 14:34 [facility] [id number]) Therapy Assessment Status Assessment Status Assessment Status Discharge Outpatient Past Medical History Neurological History Hx Parkinson's Disease Yes Cardiovascular History Hx Cardiac Surgery Yes Hx Coronary Artery Bypass Graft Yes: 2019 Hx Deep Vein Thrombosis Yes Hx Hypercholesterolemia Yes Hx Hypertension Yes Respiratory History Hx Pulmonary Embolism Yes Hx Sleep Apnea Yes Gastrointestinal History Hx Hernia Yes Genitourinary History Hx Kidney Stones Yes Musculoskeletal History Hx Back Pain Yes Endocrine History Hx Diabetes Yes Evaluation Information Problem Diagnosis unsteady gait Onset 06/28/21 Subjective Information patient reports he feels good Query Text:As Reported By Patient/ this date. he reports he Family continues to have lower back and neck issues. he reports he is starting steroids again for the lower back. he reports his balance and strength are much improved from his initial evaluation. Pain Assessment Timing of Pain Assessment Timing of Pain Assessment Assessment Pain Scale Pain Scale Used Numeric (1 - 10) Self Report Pain Assessment Lower Back Reported Pain Level 6 Neck Reported Pain Level 0 Pain Description Tightness Pain Score Pain Score 6,0: Self Report Interventions Used Interventions Used By Clinicians Activity or ADL's,Education, Exercise Balance Assessment Tinetti Balance Assessment Sitting Balance Steady, safe Ability to Arise Able, uses arms to help Attempts to Arise Arises on 1st attempt Immediate Standing Balance Steady with support Standing Balance Steady, wide stance Nudged Response Steady Standing with Eyes Closed Unsteady Step Pattern Turning 360 Degrees Continuous steps
== END 2021-09-20 15:35 | disposition home or self-care (01) ==
LOC: CHSPT 13:27
PROVIDERS: PCP Family Medicine; Visit Provider Family Medicine
DX: R26.81 Unsteadiness on feet (principal); Z91.81 History of falling
CPT/HCPCS: 97110; 97112; 97161; 97530

== ENCOUNTER 2021-07-03 12:28 | Emergency (ER) | payer MEDICARE, SELFPAY ==
--- NOTE | ~2021-07-03 | CT_ITS ---
EXAMINATION: CT brain wo con, CT facial bones wo con DATE: 07/03/2021 13:09 INDICATION: Fall with head injury and posterior and right periorbital lacerations. TECHNIQUE: 1. Computed tomography (CT) of the head was performed without intravenous contrast. Sagittal and lay nal reconstructions were performed. The mA was adjusted according to patient size. Iterative reconstr uction technique was employed. The dose-length product was 681.00 mGy-cm. 2. CT of the maxillofacial bones was performed without intravenous contrast. Sagittal and coronal rec onstructions were performed. Automated exposure control and iterative reconstruction technique were e mployed. The dose-length product was 286.17 mGy-cm COMPARISON: head CT dated 05/21/2021 FINDINGS: Head: No calvarial fracture. No acute intracranial hemorrhage, acute infarction or abnormal extra axial flu id collection. Ventricles are normal and symmetric. No mass/mass effect. Intracranial calcified cereb ral atherosclerosis is noted. Maxillofacial bones: Soft tissue swelling and laceration with overlying likely bloodsoaked gauze along the lateral right o rbital rim. Orbits appear otherwise normal with intact appearing globes and no post septal inflammato ry stranding. No maxillofacial fractures. Specifically the [place] of the orbits and paranasal sinuses, the nasal bones, pterygoid plates, zygomatic arches and mandible are intact. Normal alignment at the bilateral temporomandibular joints. Unchanged mild leftward bowing of the nasal septum with left-pauline ed spike. Mild mucosal thickening in the right maxillary and bilateral sphenoid sinuses. Mastoid air cells and middle ear cavities are clear. IMPRESSION: 1. No calvarial or maxillofacial fractures. 2. Normal brain. No acute intracranial process. Reviewed, dictated and finalized at location A. R RELATIONS MANAGER IMPRESSION: 1. No calvarial or maxillofacial fractures. 2. Normal brain. No acute intracranial process.
[2021-07-03 12:30] VITALS: BP 129/92; PULSE 76; RESP 20; TEMP 36.7; O2SAT 98
[2021-07-03] MEDS: LIDOCAINE HCL 2% PF INJ 5 ML VIAL 2 ML INFILTRATE (13:30)
--- NOTE | 2021-07-03 13:53 | ED.WOUNDLAC ---
HPI - Wound/Laceration General Chief Complaint: Wound/Laceration Stated Complaint: fell head injury Time Seen by Provider: 07/03/21 12:32 Source: patient and RN notes reviewed Mode of arrival: wheelchair Limitations: no limitations History of Present Illness Onset (ago): hour(s) (1) Location: face Place: home Patient tetanus UTD: Yes Context: accidental Associated symptoms: none and other (Pt denied chest pain, dizziness, SOB or TURNER prior to his fall) Treatments prior to arrival: bandage Related Data Home Medications Medication Instructions Recorded Confirmed aspirin 81 mg tablet,delayed 81 mg PO DAILY 08/19/19 07/03/21 release metoprolol tartrate 100 mg tablet 50 mg PO BID tablet 08/19/19 07/03/21 carbidopa-levodopa 2.5 tablet PO QID 02/26/21 07/03/21 doxazosin 1 mg PO HS 02/26/21 07/03/21 melatonin 3 mg PO TID 02/26/21 07/03/21 Eliquis 5 mg PO BID 03/29/21 07/03/21 Allergies Allergy/AdvReac Type Severity Reaction Status Date / Time No Known Allergies Allergy Unverified 02/26/21 10:26 Review of Systems Review of Systems: All systems reviewed & are unremarkable except as noted in HPI and below Neurologic: Reports headache(s) PMFSH Past Medical History Medical History Diverticulitis DVT (deep venous thrombosis) Kidney stone Pulmonary embolism Surgical History Surgical History H/O hernia repair Hx of CABG Family History Family History Grandparent Acute myocardial infarction Family history of arthritis Malignant neoplasm of prostate Mother Family history of arthritis Other Family history of hearing loss Social History Social History Smoking status: Never smoker Second hand tobacco smoke exposure: No Alcohol intake: never Substance use: never Gender identity (if verbalized by the patient): Male Spiritual care concerns: No Course Course Emergency Course: Pt deferred lab work-up. He was stable in the ED. Reevaluation(s) Reevaluation #1: VSS. Post lateral orbital laceration repair, bleeding ceased and pt wanted to go home. Date: 07/03/21 Time: 13:25 Vital Signs Vital signs: Vital Signs Temperature 36.7 C 07/03/21 12:30 Pulse Rate 76 07/03/21 12:30 Respiratory Rate 20 07/03/21 12:30 Blood Pressure 129/92 H 07/03/21 12:30 Pulse Oximetry 98 07/03/21 12:30 Temperature 37.1 C 07/03/21 14:00 Pulse Rate 75 07/03/21 14:00 Respiratory Rate 20 07/03/21 14:00 Blood Pressure 130/87 07/03/21 14:00 Pulse Oximetry 98 07/03/21 14:00 Procedures Laceration right alex-orbital 1.8 cm laceration: Date: 07/03/21 Time: 13:30 Site: face Side (If applicable): right Size (cm): 1.8 Description: linear Depth: involves muscle layer Local Anesthetic: lidocaine 2% Amount of anesthesia used (mL): 1.5 Pre-repair: wound explored, irrigated and irrigated extensively ====== Skin Level ====== Skin layer closed with: nylon Size (cm): 5-0 Number of sutures: 4 Technique: other (figure-of-8) ====== Subcutaneous Layer ====== Size: 5-0 ====== Muscle Layer ====== ====== Tendon Layer ====== MDM - Wound/Laceration Differential Diagnosis Differential diagnosis: Likely laceration, abrasion and other (head injury) Medical Records Attestation: I reviewed the patient's medical records. Lab Data Attestation: I reviewed the patient's lab results. Imaging Data Radiologist's impression: See the report Critical Care Time Critical Care Time Critical Care Time: No Total Critical Care Time: 0 Discharge Plan Discharge Clinical Impression: Laceration Fall Qualifiers: Encounter type: initial encounter Qualified Code(s): W1
[2021-07-03 14:00] VITALS: BP 130/87; PULSE 75; RESP 20; TEMP 37.1; O2SAT 98
--- NOTE | 2021-07-29 10:01 | ED.WOUNDLAC ---
HPI - Wound/Laceration General Chief Complaint: Wound/Laceration Stated Complaint: fell head injury Time Seen by Provider: 07/03/21 12:32 Source: patient and RN notes reviewed Mode of arrival: wheelchair Limitations: no limitations History of Present Illness Location: face Place: home Associated symptoms: none and other (Pt denied chest pain, dizziness, SOB or TURNER prior to his fall) Related Data Home Medications Medication Instructions Recorded Confirmed aspirin 81 mg tablet,delayed 81 mg PO DAILY 08/19/19 07/03/21 release metoprolol tartrate 100 mg tablet 50 mg PO BID tablet 08/19/19 07/03/21 carbidopa-levodopa 2.5 tablet PO QID 02/26/21 07/03/21 doxazosin 1 mg PO HS 02/26/21 07/03/21 melatonin 3 mg PO TID 02/26/21 07/03/21 Eliquis 5 mg PO BID 03/29/21 07/03/21 Allergies Allergy/AdvReac Type Severity Reaction Status Date / Time No Known Allergies Allergy Unverified 02/26/21 10:26 Review of Systems Review of Systems: All systems reviewed & are unremarkable except as noted in HPI and below PMFSH Past Medical History Medical History Diverticulitis DVT (deep venous thrombosis) Kidney stone Pulmonary embolism Surgical History Surgical History H/O hernia repair Hx of CABG Family History Family History Grandparent Acute myocardial infarction Family history of arthritis Malignant neoplasm of prostate Mother Family history of arthritis Other Family history of hearing loss Social History Social History Smoking status: Never smoker Second hand tobacco smoke exposure: No Alcohol intake: never Substance use: never Gender identity (if verbalized by the patient): Male Spiritual care concerns: No Exam Const: General: no acute distress and alert Orientation/consciousness: patient oriented x3 Limitations: no limitations HENMT: Head: normal to inspection and laceration Ears: external ears normal and TM's normal bilaterally Mouth: Yes lip normal Teeth and gingiva: dentition normal Eyes: Conjunctivae: conjunctivae normal Pupils: Equal, round and reactive pupils present EOM: EOMs intact bilaterally Neck: Neck: normal visual inspection Chest: Chest palpation & inspection: normal inspection of the chest Resp: Effort & Inspection: normal respiratory effort Auscultation: clear to auscultation bilaterally Cardio: Rate: regular rate Rhythm: regular rhythm GI: Inspection: distended GI Palp: Yes Soft to palpation and No Tenderness to palpation present (GI) Percussion: Yes normal to percussion Back/Spine/Pelvis: Back: no CVA tenderness Skin: General skin exam: normal color Rashes: no rashes Neuro: General: patient oriented x3, moves all extremities, no meningeal signs, no focal motor deficits and CN's II-XI intact bilaterally Extrem: General: normal to inspection and no pedal edema Psych: Appearance: grossly normal Mental Status: mental status grossly normal Affect: normal affect Attitude: cooperative Thought content: Yes Normal thought content present Course Course Emergency Course: Pt was stable in the ED. Reevaluation(s) Reevaluation #1: TENZIN. Date: 07/03/21 Time: 13:24 Vital Signs Vital signs: Vital Signs Temperature 36.7 C 07/03/21 12:30 Pulse Rate 76 07/03/21 12:30 Respiratory Rate 20 07/03/21 12:30 Blood Pressure 129/92 H 07/03/21 12:30 Pulse Oximetry 98 07/03/21 12:30 Temperature 37.1 C 07/03/21 14:00 Pulse Rate 75 07/03/21 14:00 Respiratory Rate 20 07/03/21 14:00 Blood Pressure 130/87 07/03/21 14:00 Pulse Oximetry 98 07/03/21 14:00 MDM - Wound/Laceration Differential Diagnosis Differential diagnosis: Likely laceration and other (head injury) Medical Records Attestation: I reviewed the patien
== END 2021-07-03 14:10 | disposition home or self-care (01) ==
PROVIDERS: Emergency Provider Emergency Medicine; PCP Family Medicine
DX: S01.81XA Laceration without foreign body of other part of head, initial encounter (principal); W19.XXXA Unspecified fall, initial encounter; S09.90XA Unspecified injury of head, initial encounter; Z86.718 Personal history of other venous thrombosis and embolism; Z79.01 Long term (current) use of anticoagulants
CPT/HCPCS: 12011; 70450; 70486; 99282; 99284

== ENCOUNTER 2022-01-13 13:20 | Outpatient (CLI) | payer MEDICARE, SELFPAY ==
[2022-01-13 13:54] LABS: SARS-CoV-2 Ag Negative (Negative)
[2022-01-13 14:11] LABS: SARS-CoV-2 RNA PCR Negative (Negative)
== END 2022-01-13 13:21 | disposition home or self-care (01) ==
LOC: CHSLAB 13:22
PROVIDERS: PCP Family Medicine; Visit Provider Family Medicine
DX: Z20.822 Contact with and (suspected) exposure to COVID-19 (principal)
CPT/HCPCS: 87426; C9803; U0003; U0005

== ENCOUNTER 2022-02-24 22:51 | Inpatient (IN) | payer MEDICARE, SELFPAY ==
--- NOTE | ~2022-02-24 | XR_ITS ---
XR chest 1V portable DATE: 02/25/2022 00:10 INDICATION: Weakness TECHNIQUE: Portable upright AP views on 02/25/2022 2 0011 hours COMPARISON: 05/21/2021 portable AP chest FINDINGS: Status post sternotomy. Normal heart size. No hilar or mediastinal enlargement. No pulmonar y infiltrate or consolidation, pleural effusion or pulmonary vascular congestion or pneumothorax. Diffuse osteopenia. Status post bilateral posterior cervical spine surgical fusion. IMPRESSION: Status post sternotomy; no active cardiopulmonary disease Reviewed, dictated and finalized at location A.
--- NOTE | ~2022-02-24 | CT_ITS ---
EXAMINATION: CT brain wo con DATE: 02/25/2022 00:10 INDICATION: Weakness after leaving Hospital today TECHNIQUE: Computed tomography (CT) of the head was performed without intravenous contrast. The mA wa s adjusted according to patient size. Iterative reconstruction technique was employed. Exam dose: 68 1.00 mGy-cm total exam DLP. COMPARISON: 07/03/2021 CT brain FINDINGS: Prominent bilateral vertebral artery and carotid siphon internal carotid artery calcificati ons. No intracranial mass lesion or hemorrhage or cerebrovascular accident is detected. No midline shift o r mass effect. No subdural or epidural hematoma. No fracture or bone destruction of the cranial vault. Included paranasal sinuses and mastoid air cell s are unremarkable. IMPRESSION: No acute intracranial finding or significant change since 07/03/2021. Reviewed, dictated and finalized at Location [facility]. Reviewed, dictated and finalized at location A. IMPRESSION: No acute intracranial finding or significant change since 1.
[2022-02-24 23:02] VITALS: BP 152/86; PULSE 80; RESP 16; TEMP 36.6; O2SAT 98
[2022-02-24 23:30] VITALS: BP 155/70; PULSE 78; RESP 16
--- NOTE | 2022-02-24 23:36 | ECG_ITS ---
Measurements Intervals [place] Rate: 90 P: 0 WI: 251 QRS: 2 QRSD: 82 T: 3 QT: 342 QTc: 419 Interpretive Statements SINUS RHYTHM WITH FIRST DEGREE AV BLOCK INCOMPLETE RIGHT BUNDLE BRANCH BLOCK LOW QRS VOLTAGE IN PRECORDIAL LEADS BASELINE ARTIFACT- I, II, III, AVR, AVL, AVF, V1-V6 ABNORMAL ECG Electronically Signed On 02-26-2022 17:23:48 CDT by Aníbal Gottlieb D.O.
[2022-02-24 23:51] LABS: Hematocrit 36.3 % (37.0-46.0); Hemoglobin 11.5 g/dL (12.4-15.3); Mean Corpuscular HGB Conc 31.7 g/dL (32.0-36.0); Mean Corpuscular Hemoglobin 29.2 pg (27.0-31.0); Mean Corpuscular Volume 92.1 fL (78.0-102.0); Mean Platelet Volume 8.2 fl (8.7-11.0); Platelet Count Result 411 K/mm3 (150-420); Red Blood Count 3.94 M/mm3 (4.70-6.10); Red Cell Distribution Width 13.3 % (11.6-14.4); White Blood Count 9.1 K/mm3 (4.8-10.8)
[2022-02-25] VITALS (8 sets, daily range): BP systolic 140–167; BP diastolic 81–90; PULSE 72–90; RESP 16–20; TEMP 36.2–36.6; O2SAT 94–98; BMI 30.9
[2022-02-25 00:09] LABS: Alanine Aminotransferase 29 U/L (16-63); Albumin Level 2.9 g/dL (3.4-5.0); Alkaline Phosphatase 123 U/L (46-116); Anion Gap 12 mmol/L (8-16); Aspartate Amino Transferase 21 U/L (15-37); Bilirubin,Total 0.3 mg/dL (0.00-1.00); Blood Urea Nitrogen 23 mg/dL (7-18); Calcium 9.4 mg/dL (8.5-10.1); Carbon Dioxide 25 mmol/L (21-32); Chloride 103 mmol/L (98-108); Estimated CRCL calculation 59 ml/min; Estimated Glomerular Filt Rate > 60; Glucose 108 mg/dL (70-99); Osmolality Calculated 294 mOsm/kg (285-295); Potassium 4.4 mmol/L (3.5-5.1); Sodium 140 mmol/L (136-145); Total Protein 7.2 g/dL (6.4-8.2); Troponin I 8.9 ng/L (0.00-60.4)
[2022-02-25 00:11] LABS: Lactic Acid Reflex 0.7 mmol/L (0.4-2.0)
[2022-02-25 00:15] LABS: Band Neutrophils Percent 0 % (0-6); Basophils Absolute Manual 0.09 K/mm3 (0-0.1); Basophils Percent Manual 1 % (0-1); Eosinophils Absolute Manual 0.81 K/mm3 (0.02-0.5); Eosinophils Percent Manual 9 % (1-6); Lymphocytes Absolute Manual 2.36 K/mm3 (1.1-4.5); Lymphocytes Percent Manual 26 % (18-44); Metamyelocytes Percent 2 %; Monocytes Absolute Manual 0.91 K/mm3 (0.1-0.90); Monocytes Percent Manual 10 % (3-9); Myelocytes Percent 0 %; Neutrophils Absolute Manual 4.73 K/mm3 (1.3-6.7); Neutrophils Percent Manual 52 % (46-73); Total Cells Counted 100
[2022-02-25 00:16] LABS: Platelet Estimate Adequate (Adequate)
[2022-02-25 00:34] LABS: Add Urine Microscopic? NO; Appearance Urine Clear (Clear); Bilirubin Urine Negative (Negative); Blood Urine Negative (Negative); Color Urine Light Yellow (Yellow); Glucose Urine UA Negative (Negative); Ketones Urine Negative (Negative); Leukocyte Esterase Ur Negative (Negative); Nitrate Urine Negative (Negative); Protein Urine Negative (Negative); Urobilinogen Urine 0.2 mg/dL (0.2-1.0)
[2022-02-25] MEDS: SODIUM CHLORIDE 0.9% IV 500 ML 999 ML IV CONT (00:35)
--- NOTE | 2022-02-25 01:18 | PC.NURSE ---
patient states can not hold urinal i can't stretch my arms due to surgery, patient would not attempt to move in bed, says I can't move its to much on my neck. Sign Installer said how are you going to get home then, you are not able to get up & take care of yourself how were you discharged from [facility]. states he walked around in room with walker when got up, but they never worked getting in & out of bed, because he sleeps in chair in living room. stated he was home 4hours & they called 911 because he couldn't take care of himself.
--- NOTE | 2022-02-25 02:35 | ED.GENADULT ---
HPI - General Adult General Chief complaint: Unspecified Stated complaint: weakness Related Data Home Medications Medication Instructions Recorded Confirmed aspirin 81 mg tablet,delayed 81 mg PO DAILY 08/19/19 02/24/22 release (Aspir-) metoprolol tartrate 100 mg tablet 50 mg PO BID 08/19/19 02/24/22 (Lopressor) carbidopa 25 mg-levodopa 100 mg 2.5 tablet PO QID 02/26/21 02/24/22 tablet doxazosin 2 mg tablet 1 mg PO HS 02/26/21 02/24/22 apixaban 5 mg tablet (Eliquis) 5 mg PO BID 03/29/21 02/24/22 cyclobenzaprine 5 mg tablet 5 mg PO TID PRN Spasms 02/24/22 02/24/22 losartan 50 mg tablet 50 mg PO DAILY 02/24/22 02/24/22 metformin 500 mg tablet 500 mg PO DAILY 02/24/22 02/24/22 oxycodone 5 mg tablet 5 mg PO Q4H PRN Pain 02/24/22 02/24/22 polyethylene glycol 3350 17 17 g PO DAILY 02/24/22 02/24/22 gram/dose oral powder (Miralax) ramelteon 8 mg tablet 8 mg PO HS PRN sleep 02/24/22 02/24/22 sennosides 8.6 mg-docusate sodium 2 tab-cap PO BID 02/24/22 02/24/22 50 mg tablet Allergies Allergy/AdvReac Type Severity Reaction Status Date / Time No Known Allergies Allergy Unverified 02/26/21 10:26 [facility] Past Medical History Medical History Diverticulitis DVT (deep venous thrombosis) Kidney stone Pulmonary embolism Surgical History Surgical History H/O hernia repair Hx of CABG Family History Family History Grandparent Acute myocardial infarction Family history of arthritis Malignant neoplasm of prostate Mother Family history of arthritis Other Family history of hearing loss Social History Social History Smoking status: Never smoker Second hand tobacco smoke exposure: No Alcohol intake: never Substance use: never Gender identity (if verbalized by the patient): Male Spiritual care concerns: No Course Vital Signs Vital signs: Vital Signs Temperature 97.8 F 02/24/22 23:02 Pulse Rate 80 02/24/22 23:02 Respiratory Rate 16 02/24/22 23:02 Blood Pressure 152/86 H 02/24/22 23:02 Pulse Oximetry 98 02/24/22 23:02 Oxygen Delivery Room Air 02/24/22 23:02 Temperature 97.6 F 02/25/22 00:20 Pulse Rate 90 02/25/22 01:55 Respiratory Rate 20 02/25/22 01:55 Blood Pressure 157/88 H 02/25/22 01:55 Pulse Oximetry 95 02/25/22 01:55 Oxygen Delivery Room Air 02/25/22 01:55 Medical Decision Making Vital Signs Vital Signs: Vital Signs Temperature 97.8 F 02/24/22 23:02 Pulse Rate 80 02/24/22 23:02 Respiratory Rate 16 02/24/22 23:02 Blood Pressure 152/86 H 02/24/22 23:02 Pulse Oximetry 98 02/24/22 23:02 Oxygen Delivery Room Air 02/24/22 23:02 Temperature 97.6 F 02/25/22 00:20 Pulse Rate 90 02/25/22 01:55 Respiratory Rate 20 02/25/22 01:55 Blood Pressure 157/88 H 02/25/22 01:55 Pulse Oximetry 95 02/25/22 01:55 Oxygen Delivery Room Air 02/25/22 01:55 Lab Data Result diagrams: 02/24/22 23:48 02/24/22 23:48 Labs: Lab Results 02/24/22 02/24/22 02/24/22 Range/Units 00:31 23:48 23:48 WBC 9.1 (4.8-10.8) K/mm3 RBC 3.94 L (4.70-6.10) M/mm3 Hgb 11.5 L (12.4-15.3) g/dL Hct 36.3 L (37.0-46.0) % MCV 92.1 (78.0-102.0) fL MCH 29.2 (27.0-31.0) pg MCHC 31.7 L (32.0-36.0) g/dL RDW 13.3 (11.6-14.4) % Plt Count 411 (150-420) K/mm3 MPV 8.2 L (8.7-11.0) fl Immature Gran % (Auto) Not Reportable Neut % (Auto) Not Reportable Lymph % (Auto) Not Reportable [place] % (Auto) Not Reportable Eos % (Auto) Not Reportable Baso % (Auto) Not Reportable Lymph # (Auto) Not Reportable [place] # (Auto) Not Reportable Eos # (Auto) Not Reportable Baso # (Auto) Not Reportable Abs Immat Gran (aut
--- NOTE | 2022-02-25 02:59 | ED.GENADULT ---
HPI - General Adult General Chief complaint: Unspecified Stated complaint: weakness Time Seen by Provider: 02/24/22 22:55 Source: patient, EMS and RN notes reviewed Mode of arrival: EMS Limitations: no limitations History of Present Illness MD complaint: persistent generalized weakness and tremors. post rehab, pt having diffic Onset (ago): day(s) (1) Severity: moderate Quality: other (denied acute pain) Relieving factors: none Exacerbating factors: none Associated symptoms: malaise and weakness Related Data Home Medications Medication Instructions Recorded Confirmed aspirin 81 mg tablet,delayed 81 mg PO DAILY 08/19/19 03/13/22 release (Aspir-) metoprolol tartrate 100 mg tablet 50 mg PO BID 08/19/19 03/13/22 (Lopressor) carbidopa 25 mg-levodopa 100 mg 2.5 tablet PO QID 02/26/21 03/13/22 tablet doxazosin 2 mg tablet 1 mg PO HS 02/26/21 03/13/22 apixaban 5 mg tablet (Eliquis) 5 mg PO BID 03/29/21 03/13/22 cyclobenzaprine 5 mg tablet 5 mg PO TID PRN Spasms 02/24/22 03/13/22 losartan 50 mg tablet 50 mg PO DAILY 02/24/22 03/13/22 metformin 500 mg tablet 500 mg PO DAILY 02/24/22 03/13/22 oxycodone 5 mg tablet 5 mg PO Q4H PRN Pain 02/24/22 03/13/22 polyethylene glycol 3350 17 17 g PO DAILY 02/24/22 03/13/22 gram/dose oral powder (Miralax) ramelteon 8 mg tablet 8 mg PO HS PRN sleep 02/24/22 03/13/22 sennosides 8.6 mg-docusate sodium 2 tab-cap PO BID 02/24/22 03/13/22 50 mg tablet Allergies Allergy/AdvReac Type Severity Reaction Status Date / Time No Known Allergies Allergy Unverified 03/13/22 09:21 Review of Systems Review of Systems: All systems reviewed & are unremarkable except as noted in HPI and below Constitutional: Constitutional: Reports no additional constitutional complaints and Reports weakness Eyes: Eyes: Reports no additional eye complaints ENT: Reports system reviewed and no additional complaints, except as documented Cardiovascular: Cardiovascular: Reports no additional cardiovascular complaints Respiratory: Respiratory: Reports no additional respiratory complaints Gastrointestinal: Gastrointestinal: Reports no additional gastrointestinal complaints Musculoskeletal: Musculoskeletal: Reports no additional musculoskeletal complaints Integumentary/Breasts: Skin/Breast: Reports system reviewed and no additional complaints, except as docu Neurologic: Reports system reviewed and no additional complaints, except as documented and Reports weakness Comments: tremors Psychiatric: Psychiatric: Reports no additional psychiatric complaints Endocrine: Endocrine: Reports no additional endocrine complaints Hematologic/Lymphatic: Hematologic/Lymphatic: Reports no additional hematologic/lymphatic complaints Allergic/Immunologic: Allergic/Immunologic: Reports no additional allergic/immunologic complaints PMFSH Past Medical History Medical History Anxiety Diverticulitis DVT (deep venous thrombosis) Generalized weakness Kidney stone Parkinson disease Pulmonary embolism Surgical History Surgical History H/O hernia repair Hx of CABG Family History Family History Grandparent Acute myocardial infarction Family history of arthritis Malignant neoplasm of prostate Mother Family history of arthritis Other Family history of hearing loss Social History Social History Smoking status: Never smoker Second hand tobacco smoke exposure: No Alcohol intake: never Substance use: never Substance use type: painkillers Gender identity (if verbalized by the patient): Male Spiritual care concerns: No Exam Const: General: healthy appearing and no acute distress Nutritional Appearance: well nourished Orientation/consciousness: patient oriented x3 Limitatio
--- NOTE | 2022-02-25 03:46 | PC.NURSE ---
Patient admitted to room 208 per shadia peña and oriented to surroundings.
[2022-02-25] MEDS: metFORMIN HCL 500 MG TABLET PO (08:01)
[2022-02-25] MEDS: SENNA/DOCUSATE SODIUM TABLET 2 TAB PO (08:01)
[2022-02-25] MEDS: METOPROLOL TARTRATE 50 MG TAB PO (08:01)
[2022-02-25] MEDS: ATORVASTATIN 40 MG TABLET PO (08:01)
[2022-02-25] MEDS: CARBIDOPA/LEVODOPA 12.5/50 MG TABLET 1 TABLET PO ×2 (08:01→12:24)
[2022-02-25] MEDS: LOSARTAN POTASSIUM 50 MG TABLET PO (08:01)
[2022-02-25] MEDS: ASPIRIN 81 MG ENTERIC TABLET PO (08:02)
[2022-02-25] MEDS: APIXABAN 2.5 MG TABLET 5 MG PO (08:02)
[2022-02-25] MEDS: CARBIDOPA/LEVODOPA 25/100 MG TABLET 2 TABLET PO ×2 (08:02→12:24)
[2022-02-25] MEDS: LORazepam (*CRX) 0.5 MG TABLET PO (09:20)
--- NOTE | 2022-02-25 09:23 | PM.SD2 ---
Same Day Admit/Disch: HPI History of Present Illness Chief complaint: weakness Narrative: Fabian Lazar is a 66 year old male who presented to our emergency department with complaints of worsening weakness. Patient has a past medical history of diverticulosis, DVT, kidney stone, PE in Parkinson's. According to patient he was discharged from rehab status post spinal surgery. According to patient he had been home for approximately 4 hours with no sleep in his chair and woke up in a cold sweat and feeling different. Patient also reports that he received oxycodone twice daily while at the rehab facility. Patient notes that he stopped taking all pain medication. Patient instructed to titrate himself off of his pain medication. Patient also informed that he may have became anxious which caused him to feel different and become diaphoretic. Patient notes that his felt the same that he may have become a chest. I explained to patient that he had just returned home and did not have the support that he received at the nursing facility and became anxious as a result. He had no other symptoms. The patient denies SOB, CP, palpitation, extremity numbness, lightheadedness, dizziness, constipation, diarrhea, chills, or fever. No significant diagnostic tests noted. Patient informed that we could set up fci placement if his was unable to take care of him at home patient declined. Patient has PT OT at our facility set up from his previous rehab facility. [employer] and witness patient ambulate from bed to chair patient was able to do so with the assistance of a walker with no difficulty. Patient has agreed that he can discharge home today and he will follow-up with outpatient PT OT. No distress noted. Patient has no complaints at this time. He has not experienced any symptoms since admission [facility] Past Medical History Medical History Diverticulitis DVT (deep venous thrombosis) Kidney stone Pulmonary embolism Surgical History Surgical History H/O hernia repair Hx of CABG Family History Family History Grandparent Acute myocardial infarction Family history of arthritis Malignant neoplasm of prostate Mother Family history of arthritis Other Family history of hearing loss Social History Social History Smoking status: Never smoker Second hand tobacco smoke exposure: No Alcohol intake: never Substance use: never Substance use type: painkillers Gender identity (if verbalized by the patient): Male Spiritual care concerns: No Same Day Admit/Disch: Med Pre-admit Medications Home Medications Medication Instructions Recorded Confirmed Type aspirin 81 mg tablet,delayed 81 mg PO DAILY 08/19/19 02/24/22 History release (Aspir-) metoprolol tartrate 100 mg tablet 50 mg PO BID 08/19/19 02/24/22 History (Lopressor) atorvastatin 40 mg tablet 40 mg PO DAILY #90 tabs 01/09/20 02/24/22 Rx probenecid 500 mg tablet 500 mg PO DAILY #90 tabs 07/12/20 02/24/22 Rx carbidopa 25 mg-levodopa 100 mg 2.5 tablet PO QID 02/26/21 02/24/22 History tablet doxazosin 2 mg tablet 1 mg PO HS 02/26/21 02/24/22 History apixaban 5 mg tablet (Eliquis) 5 mg PO BID 03/29/21 02/24/22 History cyclobenzaprine 5 mg tablet 5 mg PO TID PRN Spasms 02/24/22 02/24/22 History losartan 50 mg tablet 50 mg PO DAILY 02/24/22 02/24/22 History metformin 500 mg tablet 500 mg PO DAILY 02/24/22 02/24/22 History oxycodone 5 mg tablet 5 mg PO Q4H PRN Pain 02/24/22 02/24/22 History polyethylene glycol 3350 17 17 g PO DAILY 02/24/22 02/24/22 History gram/dose oral powder (Miralax) ramelteon 8 mg tablet 8 mg PO HS PRN sleep 02/24/22 02/24/22 History sennosides 8.6 mg-docusate sodium 2 tab-cap PO BID 02/24/22 02/24/22 History 50 mg ta
--- NOTE | 2022-02-25 12:40 | PC.NURSE ---
Reviewed discharge instructions with patient and . No questions presented at this time. Pt assisted into wheelchair and transported to private vehicle for discharge.
--- NOTE | 2022-02-27 12:28 | PC.NURSE ---
Pt states he received and understood his discharge instructions. Pt has no other comments.
== END 2022-02-25 12:40 | disposition home or self-care (01) | DRG 880 ==
LOC: CHSED 22:58 → CHS2ND 02-25 03:07
PROVIDERS: Admitting Provider Internal Medicine; Emergency Provider Emergency Medicine; PCP Family Medicine; Visit Provider Internal Medicine
DX: F41.9 Anxiety disorder, unspecified (principal); R53.1 Weakness; G20 Parkinson's disease; K57.30 Diverticulosis of large intestine without perforation or abscess without bleeding; Z86.718 Personal history of other venous thrombosis and embolism; Z79.01 Long term (current) use of anticoagulants; Z86.711 Personal history of pulmonary embolism
CPT/HCPCS: 36415; 70450; 71045; 80053; 81003; 83605; 84484; 85025; 93005; 96360; 99285; A9270; J7040

== ENCOUNTER 2022-03-03 10:50 | Outpatient (RCR) | payer MEDICARE, SELFPAY ==
--- NOTE | 2022-03-03 13:09 | PTOPEVAL ---
Thank you for referring Fabian aLzar to [facility] The patient is scheduled to be seen for therapy? ____x/week for ___ weeks. Please review, sign, date and return this plan of care JEAN-PAUL. I agree with and certify that the following plan of care is medically necessary. Referring Physician Date Admitting Provider: Attending Provider: Shamar Guillory MD Referring Provider: *PT Outpatient Evaluation Start: 03/03/22 11:06 Freq: Status: Active Protocol: Document 03/03/22 11:05 Ken (Rec: 03/03/22 11:58 [id number]) Therapy Assessment Status Assessment Status Assessment Status Evaluation Outpatient Past Medical History Neurological History Hx Parkinson's Disease Yes Cardiovascular History Hx Cardiac Surgery Yes Hx Coronary Artery Bypass Graft Yes: 2019 Hx Deep Vein Thrombosis Yes Hx Hypercholesterolemia Yes Hx Hypertension Yes Respiratory History Hx Pulmonary Embolism Yes Hx Sleep Apnea Yes Gastrointestinal History Hx Hernia Yes Genitourinary History Hx Kidney Stones Yes Musculoskeletal History Hx Back Pain Yes Endocrine History Hx Diabetes Yes Evaluation Information Problem Diagnosis post op cervical fusion Onset 02/03/22 Subjective Information patient reports he underwent Query Text:As Reported By Patient/ cervical spinal fusion of c2- Family c7 cervical vertebrae. he reports he has good days and bad days since surgery. he reports he was sick with covid prior to surgery. he reports surgery was posterior fusion only. he reports he follows up with MD on 03/13/22. he reports he was in inpatient swing bed after surgery. he reports he feels really weak still. he reports since surgery he has had a UTI which has made him weak. Prior Level of Function Comments Additional Prior Level of Function prior to surgery, he was Comments improving with balance and strength from exercises. he reports the pain down his body he was having prior to surgery is gone. he reports now he feels stiff in the neck . he reports he would like to
--- NOTE | 2022-04-07 15:12 | PTOPREEVAL ---
Evaluation Information Assessment Status Evaluation Diagnosis post op cervical fusion Onset 02/03/22 Subjective Information patient reports he feels he is improved in his balance and strength. he reports he is still more fatigued with walking and standing activities, and still feels tight in the neck. he reports he would like to continue skilled PT to continue to improve his neck mobility, core strength, endurance, and balance. Reported Pain Level Pain Score 4: Self Report Assessment PT Clinical Summary mr. elder presents to skilled PT services for his 12th skilled therapy visit since cervical fusion. as of this date, he has made improvement in rom, strength, endurance, balance, and progress towards goals. however, he continues to have only met goals for tinetti and hep education. he would do well to continue skilled PT with focus on further progression towards and achievement of goals for rom, strength, endurance, balance, and functional activity performance. he will reduce frequency and progress his HEP at home moving forward. Plan of Care Interventions Gait Training,Neuro Re-education,Patient/Caregiver Educati,Therapeutic Activities,Therapeutic Exercise PT Services Indicated Yes Treatment Frequency and 1x weekly for 4 more visits Duration These treatments will address the objective and functional deficits as defined above. The patient will be advanced safely and appropriately in order for the patient to progress towards his/her prior level of function. Additional exercises will be introduced and as well as a comprehensive home exercise program upon discharge, if needed, ?to ensure carryover of functional gains achieved in the clinic. This treatment plan has been reviewed and agreement upon by the patient.
--- NOTE | 2022-05-03 13:06 | PTOPEVAL1 ---
Assessment and note entered by Jassi [facility] Evaluation Information Assessment Status Evaluation Diagnosis parkisons disease Onset 02/03/22 Subjective Information Pt. reports that he is doing well in regards to his fusion. He feels his neck is improving. He continues to do exercise for his neck at home. He states that he recently saw his neurologist who suggested continued treatment regarding his balance. He states that he did experience a fall 2 weeks ago, and recalls just getting his feet tangled. He reports that his goal for therapy is to continue to improve his balance. Reported Pain Level Pain Score 1: Self Report Assessment PT Clinical Summary Pt. has been attending therapy to address strength and mobility post cervical fusion. He has demonstrated progress in regards to strength and mobility. He enters with additional orders to address PD. He presents with continued fall risk and gait impairments. Continued skilled PT is indicated in order to continue to improve these areas to assist with safety with ADL and IADL performance. Plan of Care Interventions Neuro Re-education,Therapeutic Activities, Therapeutic Exercise,Self-Care/Home Management PT Services Indicated Yes Treatment Frequency and 1x/week x 4 visits Duration These treatments will address the objective and functional deficits as defined above. The patient will be advanced safely and appropriately in order for the patient to progress towards his/her prior level of function. Additional exercises will be introduced and as well as a comprehensive home exercise program upon discharge, if needed, ?to ensure carryover of functional gains achieved in the clinic. This treatment plan has been reviewed and agreement upon by the patient.
--- NOTE | 2022-06-07 13:02 | BUPTOPEVAL1 ---
Assessment and note entered by [facility], PT Evaluation Information Assessment Status Re-evaluation Diagnosis parkisons disease Onset 02/03/22 Subjective Information patient reports he feels good this date. he reports he has no pain. he reports he has had no falls. he reports he is able to perform strengthening exercises at home, but is unable to perform his balance training at home due to fear of falling/risk to injury. he reports he would like to continue therapy to continue to work on and maintain his improvements made in balance, and to continue to prevent further falls. Reported Pain Level Pain Score 0: Self Report Assessment PT Clinical Summary mr. elder presents to skilled PT services for his 20th skilled therapy visit during this POC. he presents this date with improved LE strength, improved balance, improved endurance, and decreased fall risk. however, he continues to be limited in activities to perform at home independently to maintain his progress. due to this lack of independent ability to maintain balance activities at home, and given his neurological diagnosis or parkinsons disease. he would do well to continue skilled PT under a maintenance program 1x weekly for 4 weeks at a time. he will continue to be re-assessed monthly to manage any progress or regress in performance. patient is aggreable to this plan. Plan of Care Interventions Gait Training,Neuro Re-education,Patient/Caregiver Educati,Therapeutic Activities,Therapeutic Exercise PT Services Indicated Yes Treatment Frequency and maintenance therapy program 1x weekly for 4 visits Duration These treatments will address the objective and functional deficits as defined above. The patient will be advanced safely and appropriately in order for the patient to progress towards his/her prior level of function. Additional exercises will be introduced and as well as a comprehensive home exercise program upon discharge, if needed, ?to ensure carryover of functional gains achieved in the clinic. This treatment plan has been reviewed and agreement upon by the patient.
== END 2022-05-31 11:27 | disposition still patient (30) ==
LOC: CHSPT 10:50
PROVIDERS: PCP Family Medicine; Visit Provider Family Medicine
DX: Z98.890 Other specified postprocedural states (principal); G20 Parkinson's disease
CPT/HCPCS: 97014; 97110; 97161; 97530; G0283

== ENCOUNTER 2022-03-13 09:04 | Emergency (ER) | payer MEDICARE, SELFPAY ==
[2022-03-13 09:18] VITALS: BP 157/94; PULSE 98; RESP 17; TEMP 36.2; O2SAT 98
[2022-03-13 09:22] VITALS: BP 157/94; PULSE 100; RESP 17; TEMP 36.2; O2SAT 98
[2022-03-13] MEDS: LORazepam (*CRX) 0.5 MG TABLET 1 MG PO (09:57)
--- NOTE | 2022-03-13 10:02 | ED.GENADULT ---
HPI - General Adult General Chief complaint: Unspecified Stated complaint: DRUG REACTIONS History of Present Illness HPI narrative: This is a 66-year-old male presenting to the ED with a chief complaint of opiate withdrawal although it appears upon further interview it is actually anxiety. The patient underwent a neck surgery on February 03. During his hospital stay and rehab. He was taking oxycodone 5 mg Q 4. When he was discharged he underwent opiate withdrawal. He was admitted here on February 24 where he was discharged with oxy and Ativan and given a weaning protocol. He has been following the protocol however he is still having periods of intense anxiety. They are worse at nighttime. He is having difficulty sleeping. He has been able to relieve it with distraction by going on rides with his friends. However it has become severely debilitating. Patient attempted to call his primary care physician on Sunday however he did not get a call back and this caused him severe anxiety over the weekend. patient denies any physical complaints this time. Related Data Home Medications Medication Instructions Recorded Confirmed aspirin 81 mg tablet,delayed 81 mg PO DAILY 08/19/19 03/13/22 release (Aspir-) metoprolol tartrate 100 mg tablet 50 mg PO BID 08/19/19 03/13/22 (Lopressor) carbidopa 25 mg-levodopa 100 mg 2.5 tablet PO QID 02/26/21 03/13/22 tablet doxazosin 2 mg tablet 1 mg PO HS 02/26/21 03/13/22 apixaban 5 mg tablet (Eliquis) 5 mg PO BID 03/29/21 03/13/22 cyclobenzaprine 5 mg tablet 5 mg PO TID PRN Spasms 02/24/22 03/13/22 losartan 50 mg tablet 50 mg PO DAILY 02/24/22 03/13/22 metformin 500 mg tablet 500 mg PO DAILY 02/24/22 03/13/22 oxycodone 5 mg tablet 5 mg PO Q4H PRN Pain 02/24/22 03/13/22 polyethylene glycol 3350 17 17 g PO DAILY 02/24/22 03/13/22 gram/dose oral powder (Miralax) ramelteon 8 mg tablet 8 mg PO HS PRN sleep 02/24/22 03/13/22 sennosides 8.6 mg-docusate sodium 2 tab-cap PO BID 02/24/22 03/13/22 50 mg tablet Allergies Allergy/AdvReac Type Severity Reaction Status Date / Time No Known Allergies Allergy Unverified 03/13/22 09:21 Review of Systems Review of Systems: CONSTITUTIONAL: Denies night sweats. EYES: No eye pain ENT: Denies rhinorrhea CARDIOVASCULAR: Denies palpitations RESPIRATORY: Denies hemoptysis GASTROINTESTINAL: Denies hematemesis GENITOURINARY: Denies hematuria. SKIN: Denies rash MUSCULOSKELETAL: Denies myalgia. NEUROLOGIC: Denies weakness. PSYCHIATRIC: Denies delusions PMFSH Past Medical History Medical History Anxiety Diverticulitis DVT (deep venous thrombosis) Kidney stone Pulmonary embolism Surgical History Surgical History H/O hernia repair Hx of CABG Family History Family History Grandparent Acute myocardial infarction Family history of arthritis Malignant neoplasm of prostate Mother Family history of arthritis Other Family history of hearing loss Social History Social History Smoking status: Never smoker Second hand tobacco smoke exposure: No Alcohol intake: never Substance use: never Substance use type: painkillers Gender identity (if verbalized by the patient): Male Spiritual care concerns: No Exam Narrative: APPEARANCE: Patient appears very anxious. he does not have a runny nose and he is not yawning during the interview. Head atraumatic. EYES: PERRLA/EOMI, pupils are 2 mm equal and reactive NOSE: Normal no drainage NECK: Supple, Trachea midline RESPIRATORY: CTAB, No increased work of breathing. CARDIOVASCULAR: S1S2 appreciated ABDOMINAL: Soft, nontender, nondistended, MUSCULOSKELETAl: No obvious deformities NEURO: Alert. Moving 4/4 extremities , pill-rolling tremor of his left hand SKIN:: Warm,
[2022-03-13 10:32] VITALS: BP 136/105; PULSE 74; RESP 17; TEMP 36.4; O2SAT 98
== END 2022-03-13 10:34 | disposition home or self-care (01) ==
PROVIDERS: Emergency Provider Emergency Medicine; PCP Family Medicine
DX: F41.9 Anxiety disorder, unspecified (principal); Z86.718 Personal history of other venous thrombosis and embolism; Z86.711 Personal history of pulmonary embolism
CPT/HCPCS: 99283; A9270

== ENCOUNTER 2022-06-07 11:28 | Outpatient (RCR) | payer MEDICARE, SELFPAY ==
--- NOTE | 2022-06-28 15:21 | PTOPEVAL1 ---
Assessment and note entered by Jassi [facility] Evaluation Information Assessment Status Evaluation Diagnosis Parkinsons Disease Onset 02/03/22 Subjective Information Pt. reports that he is walking better. He notices that his balance and strength have improved. He states that he can go without his cane for short distances. He reports that despite his progress he has concerns with his balance. Pt. has not experienced any recent falls. He notices that his arm movements with walking have improved over the recent months. He states that his neurologist suggested he continue with therapy 1x/week. Reported Pain Level Pain Score 0: Self Report Assessment PT Clinical Summary Pt. has been participating in therapy for several months. Given his diagnosis of PD he has done well to maintain his current status with consistent skilled PT provided. At this time recommend a continued maintainence program focusing on balance and strength as well as flexibility training. Plan of Care Interventions Manual Therapy,Therapeutic Activities,Therapeutic Exercise,Self-Care/Home Management PT Services Indicated Yes Treatment Frequency and 1x/week x 4 visits Duration These treatments will address the objective and functional deficits as defined above. The patient will be advanced safely and appropriately in order for the patient to progress towards his/her prior level of function. Additional exercises will be introduced and as well as a comprehensive home exercise program upon discharge, if needed, ?to ensure carryover of functional gains achieved in the clinic. This treatment plan has been reviewed and agreement upon by the patient.
--- NOTE | 2022-08-17 06:46 | BUPTOPEVAL1 ---
Assessment and note entered by [facility] Evaluation Information Assessment Status Progress Diagnosis Parkinsons Disease Onset 02/03/22 Subjective Information Pt. continues to note that he has been doing well without using his AD. He recalls no recent falls. He states that regular attendance in therapy has assisted in maintaining his mobility and safety. He reports that he is continuing to drive and get into the community without assistance. He reports that he would like to continue with therapy to maintain strength and mobility. Assessment PT Clinical Summary Pt. continues to demonstrate excellent maintainence in regards to strength and functional mobility. Given his hx of PD he is a strong candidate for continues maintainence rehab due to his hx of falls. we will continue to focus on flexibility for postural control, strength, and both dynamic and static balance. Plan of Care Interventions Neuro Re-education,Therapeutic Activities, Therapeutic Exercise PT Services Indicated Yes Treatment Frequency and 1x/week x 4 visits Duration These treatments will address the objective and functional deficits as defined above. The patient will be advanced safely and appropriately in order for the patient to progress towards his/her prior level of function. Additional exercises will be introduced and as well as a comprehensive home exercise program upon discharge, if needed, ?to ensure carryover of functional gains achieved in the clinic. This treatment plan has been reviewed and agreement upon by the patient.
--- NOTE | 2022-09-13 21:30 | BUPTOPEVAL1 ---
Assessment and note entered by [facility], PT Evaluation Information Assessment Status Re-evaluation Diagnosis Parkinsons Disease Onset 02/03/22 Subjective Information patient reports he has a new order to continue skilled PT for his neck with focus on increasing ROM. Assessment PT Clinical Summary mr. elder presents to skilled PT today with new orders to evaluate and treat his cervical spine. up to this point he has been performing maintenance therapy for his parkinsons for the past few months. as of this date, due to the decreased cervical rom, strength, and postural stability/endurance, he will transition out of a maintenance program and into a rehabilitative program for the cervical spine. Plan of Care Interventions Manual Therapy,Neuro Re-education,Patient/ Caregiver Educati,Therapeutic Activities, Therapeutic Exercise PT Services Indicated Yes Treatment Frequency and 2x weekly for 8 visits Duration These treatments will address the objective and functional deficits as defined above. The patient will be advanced safely and appropriately in order for the patient to progress towards his/her prior level of function. Additional exercises will be introduced and as well as a comprehensive home exercise program upon discharge, if needed, ?to ensure carryover of functional gains achieved in the clinic. This treatment plan has been reviewed and agreement upon by the patient.
== END 2022-09-06 10:16 | disposition still patient (30) ==
LOC: CHSPT 11:28
PROVIDERS: PCP Family Medicine; Visit Provider Family Medicine
DX: Z47.89 Encounter for other orthopedic aftercare (principal); G20 Parkinson's disease; Z98.890 Other specified postprocedural states
CPT/HCPCS: 97110; 97112; 97530

== ENCOUNTER 2022-09-13 10:19 | Outpatient (RCR) | payer MEDICARE, SELFPAY ==
--- NOTE | 2022-10-06 14:02 | PTOPDC ---
Assessment and note entered by JT File, PT Evaluation Information Assessment Status Progress Diagnosis cervical pain Onset 02/03/22 Subjective Information patient reports the neck feels better. he reports he doec continue to feel tightness, and difficulty with looking over his shoulders. Reported Pain Level Pain Score 0: Self Report Assessment PT Clinical Summary mr. elder presents to skilled PT services today for re-evaluation of his cervical rehab progress and his needs for continued skilled PT. as of this date, he presents with improved cervical rom, improved cervical strength, decreased pain, and improved functional head movements for driving. he has met goals for cervical sidebending, cervical strength, decreased pain, and hep performance. he continues to display deficits in balance and gait due to his parkinsons. however, he will plan to trial DC skilled PT at this time, and continue with independent workouts 3x weekly. Plan of Care Treatment Frequency and DC patient from skilled PT, he will continue fall Duration prevention class 2x weekly and use the machines and // bars in therapy independent 1x weekly.
== END 2022-10-06 15:39 | disposition home or self-care (01) ==
LOC: CHSPT 10:19
PROVIDERS: PCP Family Medicine; Visit Provider Nurse Practitioner Acute Care
DX: Z47.89 Encounter for other orthopedic aftercare (principal); G20 Parkinson's disease; Z98.890 Other specified postprocedural states
CPT/HCPCS: 97110; 97112; 97140; 97530

== ENCOUNTER 2022-10-23 15:44 | Emergency (ER) | payer OTHER, MEDICARE, SELFPAY ==
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
[2022-10-23 15:49] VITALS: BP 100/69; PULSE 63; RESP 18; TEMP 37; O2SAT 99
[2022-10-23 16:00] VITALS: BP 100/69; PULSE 61; RESP 17; TEMP 37; O2SAT 98
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
[2022-10-23 18:31] VITALS: BP 215/93; PULSE 63; RESP 16; TEMP 36.2; O2SAT 97
== END 2022-10-23 18:34 | disposition home or self-care (01) ==
PROVIDERS: Emergency Provider Emergency Medicine; PCP Family Medicine
DX: S16.1XXA Strain of muscle, fascia and tendon at neck level, initial encounter (principal); Z79.82 Long term (current) use of aspirin; Z79.01 Long term (current) use of anticoagulants; Z86.718 Personal history of other venous thrombosis and embolism; Z86.711 Personal history of pulmonary embolism; Z79.891 Long term (current) use of opiate analgesic; Z98.1 Arthrodesis status; V89.2XXA Person injured in unspecified motor-vehicle accident, traffic, initial encounter; Y92.008 Other place in unspecified non-institutional (private) residence as the place of occurrence of the external cause
CPT/HCPCS: 72125; 99284; L0150

== ENCOUNTER 2022-12-13 11:00 | Outpatient (RCR) | payer MEDICARE, SELFPAY ==
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
== END 2023-01-17 16:06 | disposition home or self-care (01) ==
LOC: CHSPT 11:00
PROVIDERS: Visit Provider Nurse Practitioner Acute Care
DX: M54.2 Cervicalgia (principal); Z98.1 Arthrodesis status
CPT/HCPCS: 97110; 97140; 97150; 97161

== ENCOUNTER 2023-10-03 14:53 | Outpatient (CLI) | payer MEDICARE, SELFPAY ==
--- NOTE | ~2023-10-03 | XR_ITS ---
EXAMINATION: XR tibia fibula RT 2V DATE: 10/03/2023 15:19 INDICATION: Right knee pain. Right lower leg pain. TECHNIQUE: 2 views of right tibia and fibula on 4 radiographs were obtained. COMPARISON: None. FINDINGS: Bone alignment is normal. No fracture. There is mild tricompartmental osteoarthritis of rig ht knee. There are loose bodies in a Donaldson's cyst. There is mild ankle and midfoot joint osteoarthrit is. There is an enthesophyte at plantar aspect of calcaneal tuberosity. IMPRESSION: 1. Mild polyarticular osteoarthritis. Reviewed, dictated and finalized at location E. [facility]
--- NOTE | ~2023-10-03 | XR_ITS ---
EXAMINATION: XR knee RT 3V DATE: 10/03/2023 15:19 INDICATION: Right knee pain. TECHNIQUE: 3 views of right knee were obtained. COMPARISON: None. FINDINGS: There is varus attenuation at the knee. There is lateral subluxation of patella. No fractur e. There is mild tricompartmental osteoarthritis of the knee. There is a small knee joint effusion. T here are loose bodies in a Donaldson's cyst. IMPRESSION: 1. Mild right knee osteoarthritis. 2. Small right knee joint effusion. 3. Loose bodies in a Donaldson's cyst. Reviewed, dictated and finalized at location E. [facility] [employer]
== END 2023-10-03 14:54 | disposition home or self-care (01) ==
LOC: CHSIMG 14:55
PROVIDERS: PCP Family Medicine; Visit Provider Family Medicine
DX: M79.604 Pain in right leg (principal); M25.561 Pain in right knee; M17.11 Unilateral primary osteoarthritis, right knee; M25.461 Effusion, right knee; M23.41 Loose body in knee, right knee; M71.21 Synovial cyst of popliteal space [Baker], right knee
CPT/HCPCS: 73562; 73590

== ENCOUNTER 2023-10-08 14:42 | Outpatient (RCR) | payer MEDICARE, SELFPAY ==
--- NOTE | 2023-10-08 15:22 | PTOPEVAL1 ---
Assessment and note entered by Jassi Gao Evaluation Information Assessment Status Evaluation Diagnosis right knee pain Onset 09/17/23 Subjective Information Pt. reports that right knee pain began about 3 weeks ago. He reports that he did not have any recent fall associated with the pain. He describes pain on the inside of the right knee. He did undergo xray which revealed OA. He states that pain is most intense with standing activities , especially initially standing from a seated position. He reports that he is currently taking Tylenol everyday for pain. He states that he rarely has pain at rest. He reports that he has hx of PD and can only currently walk for about 10 minutes due to knee pain. He reports that he is using a cane more often due to his knee pain. He reports that his goal for therapy is to reduce his right knee pain. Reported Pain Level Pain Score 6: Self Report Assessment PT Clinical Summary Pt. is a 68 year old male who enters the clinic with medial right knee pain. He presents with impaired gait, impaired l.e. strength, pain, impaired right knee mobility, impaired balance and functional decline. Continued skilled PT is indicated in order to improve these areas to allow for improved comfort and efficiency with IADL performance. Plan of Care Interventions Electrical Stimulation,Gait Training,Hot Pack/Cold Pack,Manual Therapy,Neuro Re-education,Patient/ Caregiver Educati,Therapeutic Activities, Therapeutic Exercise PT Services Indicated Yes Treatment Frequency and 3x/week x 12 visits Duration These treatments will address the objective and functional deficits as defined above. The patient will be advanced safely and appropriately in order for the patient to progress towards his/her prior level of function. Additional exercises will be introduced and as well as a comprehensive home exercise program upon discharge, if needed, ?to ensure carryover of functional gains achieved in the clinic. This treatment plan has been reviewed and agreement upon by the patient.
--- NOTE | 2023-10-08 15:23 | OPREHPOC ---
Outpatient Therapy Plan of Care This is a Multidisciplinary Plan of Care that may contain components documented by all disciplines (PT, OT, and ST.) PT Problem 1 PT Problem #1 Knowledge Deficit PT Goal 1 Goal Independent with a HEP addressing knee mobility and l.e. strength Target Visit 2 PT Problem 2 PT Problem #2 Impaired Balance PT Goal 1 Goal Improve tinetti score to 19 or greater indicating improved balance. Target Visit 12 PT Problem 3 PT Problem #3 Impaired Flexibility PT Goal 1 Goal Pt. will present at 15 degrees from full knee extension on right and left with the 90/90 test. Pt. will demonstrate 0-120 degrees right knee active ROM Target Visit 12 PT Problem 4 PT Problem #4 Impaired Functional Mobil PT Goal 1 Goal Pt. will present with less than 50% limitation on the LEFS Pt. will demonstrate equal right and left stance time with use of standard cane during the 6 minute walk test completing the test over a distance of 800' or greater. Target Visit 12
--- NOTE | 2023-10-31 16:15 | OPREHPOC ---
Outpatient Therapy Plan of Care This is a Multidisciplinary Plan of Care that may contain components documented by all disciplines (PT, OT, and ST.) PT Problem 1 PT Problem #1 Knowledge Deficit PT Goal 1 Goal Independent with a HEP addressing knee mobility and l.e. strength Target Visit 2 Progress Met PT Problem 2 PT Problem #2 Impaired Balance PT Goal 1 Goal Improve tinetti score to 19 or greater indicating improved balance. Target Visit 12 Progress Not Met Comment continue PT Problem 3 PT Problem #3 Impaired Flexibility PT Goal 1 Goal Pt. will present at 15 degrees from full knee extension on right and left with the 90/90 test. Pt. will demonstrate 0-120 degrees right knee active ROM Target Visit 12 Progress Partially Met Comment met for ROM PT Problem 4 PT Problem #4 Impaired Functional Mobil PT Goal 1 Goal Pt. will present with less than 50% limitation on the LEFS Pt. will demonstrate equal right and left stance time with use of standard cane during the 6 minute walk test completing the test over a distance of 800' or greater. Target Visit 12 Progress Partially Met Comment met for 6 min walk
--- NOTE | 2023-10-31 16:15 | PTOPPROG ---
Assessment and note entered by Evie Monge DPT Evaluation Information Assessment Status Progress Diagnosis right knee pain Onset 09/17/23 Subjective Information patient reports that his knee has improved since start of PT. He reports pain has decreased. he reports when he first stands up his knee is uncomfortable. he reports his knee pain is less with prolonged ambulation. He reports independence with HEP Assessment PT Clinical Summary Mr. Lazar has attended 10 visits of skilled PT with good improvement towards goals. He demonstrates improved R knee ROM and B LE strength . He is able to ambulate 825 feet with STC during 6 min walk test. He continues to demonstrate poor balance with Tinetti Balance testing indicating high fall risk. He would benefit from continued skilled PT to address remaining impairments, decrease fall risk and return to PLOF. Plan of Care Interventions Electrical Stimulation,Gait Training,Hot Pack/Cold Pack,Manual Therapy,Neuro Re-education,Patient/ Caregiver Educati,Therapeutic Activities, Therapeutic Exercise PT Services Indicated Yes Treatment Frequency and continue with remaining 2 visits Duration These treatments will address the objective and functional deficits as defined above. The patient will be advanced safely and appropriately in order for the patient to progress towards his/her prior level of function. Additional exercises will be introduced and as well as a comprehensive home exercise program upon discharge, if needed, ?to ensure carryover of functional gains achieved in the clinic. This treatment plan has been reviewed and agreement upon by the patient.
--- NOTE | 2023-11-01 13:41 | PCPTNOTE ---
patient not feeling well, called to cancel
--- NOTE | 2023-11-14 13:58 | OPREHPOC ---
Outpatient Therapy Plan of Care This is a Multidisciplinary Plan of Care that may contain components documented by all disciplines (PT, OT, and ST.) PT Problem 1 PT Problem #1 Knowledge Deficit PT Goal 1 Goal Independent with a HEP addressing knee mobility and l.e. strength Target Visit 2 Progress Met PT Problem 2 PT Problem #2 Impaired Balance PT Goal 1 Goal Improve tinetti score to 19 or greater indicating improved balance. Target Visit 12 Progress Met PT Problem 3 PT Problem #3 Impaired Flexibility PT Goal 1 Goal Pt. will present at 15 degrees from full knee extension on right and left with the 90/90 test. Pt. will demonstrate 0-120 degrees right knee active ROM Target Visit 12 Progress Met PT Problem 4 PT Problem #4 Impaired Functional Mobil PT Goal 1 Goal Pt. will present with less than 50% limitation on the LEFS -not tested Pt. will demonstrate equal right and left stance time with use of standard cane during the 6 minute walk test completing the test over a distance of 800' or greater. -met Target Visit 12 Progress Partially Met
--- NOTE | 2023-11-14 13:58 | PTOPDC ---
Assessment and note entered by Negar Corrales, PT Evaluation Information Assessment Status Discharge Diagnosis R knee pain Onset 09/17/23 Subjective Information Fabian Lazar reports his right knee is doing well. He does still have a little tenderness when he first stands but otherwise he is able to perform daily activities without limitations from his knee. He does still have balance deficits due to his Parkinson's disease and he has constant neck pain. He has been going to balance class two times a week and will continue to do so after discharge. Reported Pain Level Pain Score 1: Self Report Assessment PT Clinical Summary Fabian Lazar has completed 12 skilled PT visits for right knee pain. He is reporting minimal to no right knee pain and has been able to return to all daily activities. He does still note balance deficits due to his Parkinson's disease. He objectively demonstrates decreased tenderness at the right medial knee joint structures, improved right knee AROM, improved right knee and hip strength, and improved balance per the Tinetti Balance scale. He does still have a high fall risk per the Tinetti Balance scale. He plans to follow up with his primary doctor and request PT for balance training. He will be discharged for his right knee today. Plan of Care PT Services Indicated No
== END 2023-11-14 14:02 | disposition home or self-care (01) ==
LOC: CHSPT 14:42
PROVIDERS: Visit Provider Family Medicine
DX: M25.561 Pain in right knee (principal)
CPT/HCPCS: 97014; 97110; 97112; 97161; 97530; G0283

== ENCOUNTER 2023-11-30 14:42 | Outpatient (RCR) | payer MEDICARE, SELFPAY ==
--- NOTE | 2023-11-30 15:39 | OPREHPOC ---
Outpatient Therapy Plan of Care This is a Multidisciplinary Plan of Care that may contain components documented by all disciplines (PT, OT, and ST.) PT Problem 1 PT Problem #1 Knowledge Deficit PT Goal 1 Goal Patient to demonstrate independence with HEP Target Visit 6 PT Problem 2 PT Problem #2 Impaired Strength PT Goal 1 Goal Patient to demonstrate 5/5 strength of B LE to improve ability to stand up from chair Target Visit 12 PT Problem 3 PT Problem #3 Impaired Functional Mobil PT Goal 1 Goal 1. patient to score 24 on Tinetti balance score to decrease fall risk within the home 2. patient to ambulate 100' during 6 min walk test with no instance of toe drag to decrease fall risk at home and within the community 3. patient to report no loss of balance when standing up from chair Target Visit 12
--- NOTE | 2023-11-30 15:39 | PTOPEVAL1 ---
Assessment and note entered by Evie Monge DPT Evaluation Information Assessment Status Evaluation Diagnosis impaired gait and balance Onset 11/23/23 Subjective Information patient has history of Parkinson's and has noticed his balance in continuing to get worse. he reports he has not had any falls. he uses a cane at all times and a standard walker at night. he reports at night between dosages of meds he has freezing gait when walking through door ways. he has recently been seen for R knee pain but report pain has not been bad. he reports he attends fall class 2x a week and stays active with community events. he reports he does not do a lot of exercise at home. he reports L side is weaker than R. he reports difficulty with first standing up from a chair, walking on uneven surfaces, and standing unsupported for household tasks. Reported Pain Level Pain Score 0: Self Report Assessment PT Clinical Summary Mr. Lazar is a 68 year old male who presents to PT with impaired gait and balance. He demonstrates decreased B LE strength, impaired gait mechanics and impaired balance as demonstrated by objective testing of Tinetti, 5TSTS and 6 min walk test. He has difficulty with immediate balance when standing up from a chair, walking on uneven surfaces and completing house hold tasks. He would would benefit from skilled PT to address impairments and return to PLOF. Plan of Care Interventions Electrical Stimulation,Gait Training,Hot Pack/Cold Pack,Neuro Re-education,Patient/Caregiver Educati ,Therapeutic Activities,Therapeutic Exercise PT Services Indicated Yes Treatment Frequency and 2x weekly for 12 visits Duration These treatments will address the objective and functional deficits as defined above. The patient will be advanced safely and appropriately in order for the patient to progress towards his/her prior level of function. Additional exercises will be introduced and as well as a comprehensive home exercise program upon discharge, if needed, ?to ensure carryover of functional gains achieved in the clinic. This treatment plan has been reviewed and agreement upon by the patient.
--- NOTE | 2024-01-16 13:59 | PTOPPROG ---
Assessment and note entered by [facility] Evaluation Information Assessment Status Progress Diagnosis Parkinson's Disease, impaired gait, impaired balance, functional decline Onset 11/23/23 Subjective Information Pt. reports that his neck is sore today. He states that pain has been increased this week and unsure as to why it is increased. He inquires regarding performance of a maintenance program due to his PD. He states that he notices improvements in his balance and strength, and has had no recent falls. He states that he still varies with his steadiness. Assessment PT Clinical Summary Mr. Lazar has attended a total of 12 treatment sessions. He has demonstrated slight progress in regards to balance, gait mechanics and strength. Despite this progress he continues to present with deficits. Given the fact that he has the inability to complete adequate balance activities at home due to his fall risk, he would benefit from a maintenance program focused on maintaining and improving postural awareness, flexibility, strength and balance. Recommend continued skilled PT services at this time focused on maintenance goals list below to help with safety and functional mobility. Plan of Care Interventions Gait Training,Manual Therapy,Neuro Re-education, Patient/Caregiver Educati,Therapeutic Activities, Therapeutic Exercise PT Services Indicated Yes Treatment Frequency and 1x/week x 6 visits Duration These treatments will address the objective and functional deficits as defined above. The patient will be advanced safely and appropriately in order for the patient to progress towards his/her prior level of function. Additional exercises will be introduced and as well as a comprehensive home exercise program upon discharge, if needed, ?to ensure carryover of functional gains achieved in the clinic. This treatment plan has been reviewed and agreement upon by the patient.
--- NOTE | 2024-02-22 15:13 | OPREHPOC ---
Outpatient Therapy Plan of Care This is a Multidisciplinary Plan of Care that may contain components documented by all disciplines (PT, OT, and ST.) PT Problem 1 PT Problem #1 Knowledge Deficit PT Goal 1 Goal Patient to demonstrate independence with HEP Target Visit 6 Progress Met PT Problem 2 PT Problem #2 Impaired Strength PT Goal 1 Goal Patient to demonstrate 5/5 strength of B LE to improve ability to stand up from chair Target Visit 18 Progress Not Met PT Problem 3 PT Problem #3 Impaired Functional Mobil PT Goal 1 Goal 1. patient to score 24 on Tinetti balance score to decrease fall risk within the home 2. patient to ambulate 1000' during 6 min walk test with no instance of toe drag to decrease fall risk at home and within the community 3. patient to report no loss of balance when standing up from chair Target Visit 18 Progress Not Met PT Problem 4 PT Problem #4 Impaired Functional Mobil PT Goal 1 Goal -Pt. will demonstrate maintained ability to ambulate a distance of 700' in 6 minutes without incidence of toe drag -Pt. will demonstrate maintained/improved postural awareness through regular flexibility training and postural exercises Target Visit 18
--- NOTE | 2024-02-22 15:14 | PTOPPROGNS ---
Assessment and note entered by [facility], PT Evaluation Information Assessment Status Progress Diagnosis Parkinson's Disease, impaired gait, impaired balance, functional decline Onset 11/23/23 Subjective Information patient reports he has not been to therapy for a few weeks due to being tied up taking his mom to some of her medical appointments and other prior engagements. he reports he has had no falls, but does stumble quite frequently. Assessment PT Clinical Summary mr. elder presents to skilled PT for his 15th skilled therapy visit and his first visit back in about 3 weeks. he has had no falls since not being in therapy, but continues to report deficits in function and stumbling while walking. he continues to display a moderate fall risk per the tinetti, but improved endurance/distance on 6 minute walk test. however, his ambulation is with poor mechanics. he presents with continued balance and gait deficits, and would benefit from continued skilled PT/maintenance therapy. Plan of Care Interventions Gait Training,Manual Therapy,Neuro Re-education, Patient/Caregiver Educati,Therapeutic Activities, Therapeutic Exercise PT Services Indicated Yes Treatment Frequency and continue skilled PT per last re-evaluation Duration These treatments will address the objective and functional deficits as defined above. The patient will be advanced safely and appropriately in order for the patient to progress towards his/her prior level of function. Additional exercises will be introduced and as well as a comprehensive home exercise program upon discharge, if needed, ?to ensure carryover of functional gains achieved in the clinic. This treatment plan has been reviewed and agreement upon by the patient.
== END 2024-02-27 11:18 | disposition still patient (30) ==
LOC: CHSPT 14:42
PROVIDERS: Visit Provider Family Medicine
DX: R26.81 Unsteadiness on feet (principal)
CPT/HCPCS: 97110; 97112; 97161; 97530; 97750

== ENCOUNTER 2024-03-10 11:20 | Outpatient (RCR) | payer MEDICARE, SELFPAY ==
--- NOTE | 2024-03-17 12:00 | PTOPPROG ---
Assessment and note entered by [facility] Evaluation Information Assessment Status Progress Diagnosis Parkinson's Disease, impaired gait, impaired balance, functional decline Onset 11/23/23 Subjective Information Pt. reports that he has been busy taking his mother to the doctor and has been unable to consistently attend treatment. He states that he participates in an outside exercise class, but has not been able to attend recently due to vacation and being ill. He states that he has had one fall in the past month. He states that his inability to be consistent does take effect on his walking and strength. He states that his goal remains to maintain strength and improve balance. Assessment PT Clinical Summary Pt. demonstrates little change in functional testing scores since last evaluation. This is likely due to patient having recent illness and being unable to attend treatment. He has currently been participating in a maintenance program due to hx of PD and lack of ability to effectively exercise at home without assistance. At this time we will continue with our current program focusing on maintaining flexibility to reduce postural deformity, maintain balance and continue to reduce fall risk. Plan of Care Interventions Electrical Stimulation,Gait Training,Hot Pack/Cold Pack,Manual Therapy,Neuro Re-education,Patient/ Caregiver Educati,Therapeutic Activities, Therapeutic Exercise PT Services Indicated Yes Treatment Frequency and 1x/week x 6 visits Duration These treatments will address the objective and functional deficits as defined above. The patient will be advanced safely and appropriately in order for the patient to progress towards his/her prior level of function. Additional exercises will be introduced and as well as a comprehensive home exercise program upon discharge, if needed, ?to ensure carryover of functional gains achieved in the clinic. This treatment plan has been reviewed and agreement upon by the patient.
--- NOTE | 2024-05-12 11:13 | PCPTNOTE ---
Mr. Lazar contacted the clinic and canceled his appointment today due to having back pain.
== END 2024-06-08 23:59 | disposition home or self-care (01) ==
LOC: CHSPT 11:20
PROVIDERS: Visit Provider Family Medicine
DX: R26.81 Unsteadiness on feet (principal)
CPT/HCPCS: 97110; 97112; 97530

== ENCOUNTER 2024-06-12 11:13 | Outpatient (CLI) | payer MEDICARE, SELFPAY ==
--- NOTE | ~2024-06-12 | XR_ITS ---
Lumbosacral Spine: AP and lateral views Clinical History: Pain Findings: The normal lordotic curve is maintained. No fracture seen. There is minimal grade 1 retroli sthesis of L4 over L5. There is moderate degenerative disc narrowing at L4-L5 and L5-S1. There is sev ere facet arthropathy at L4-L5 and L5-S1. There are mild degenerative disc and facet joint degenerati ve changes in the upper lumbar spine. The sacroiliac joints are normally outlined. IVC filter present . Impression: Advanced degenerative spondylosis of the lower lumbar spine, as detailed above, with minimal grade 1 anterolisthesis of L4 over L5. Reviewed, dictated and finalized at location M. ERTY COORDINATOR Impression: Advanced degenerative spondylosis of the lower lumbar spine, as detailed above, with minimal grade 1 anterolisthesis of L4 over L5.
== END 2024-06-12 11:14 | disposition home or self-care (01) ==
LOC: CHSIMG 11:15
PROVIDERS: PCP Family Medicine; Visit Provider Family Medicine
DX: M54.50 Low back pain, unspecified (principal); M43.06 Spondylolysis, lumbar region
CPT/HCPCS: 72100

== ENCOUNTER 2024-07-05 09:50 | Outpatient (CLI) | payer MEDICARE, SELFPAY ==
--- NOTE | ~2024-07-05 | MR_ITS ---
EXAMINATION: MR lumbar spine wo con DATE: 07/05/2024 11:50 INDICATION: Chronic low back pain. TECHNIQUE: Magnetic resonance imaging (MRI) of the lumbar spine was performed without intravenous con trast. Sequences included sagittal T2-weighted FSE, sagittal T2-weighted FS FSE, sagittal T1-weighted FSE, and axial T2-weighted FSE. COMPARISON: Lumbar spine MRI 11/24/2020 FINDINGS: There is 5 degrees dextrocurvature of lumbar spine. There is 5 mm retrolisthesis of L3 on L 4 and 3 mm retrolisthesis of L4 on L5. There is mild chronic anterior wedging of T12-L2 vertebral bod ies. There is moderately decreased disc height at L3-L4, severely decreased disc height at L4-L5, and moderately decreased disc height at L5-S1. The distal spinal cord signal intensity is normal. The co nus medullaris is at L1. The following disc levels are specifically discussed: L1-L2: The disc does not extend beyond the endplate margin. There is moderate right facet joint osteo arthritis. There is no neural foraminal stenosis. There is no central canal stenosis. L2-L3: The disc is mildly bulging. There is mild bilateral facet joint osteoarthritis. There is mild bilateral neural foraminal stenosis. There is no central canal stenosis. L3-L4: The disc is bulging and has an annular fissure. There is severe bilateral facet joint osteoart hritis. There is moderate bilateral neural foraminal stenosis. There is mild central canal stenosis. L4-L5: The disc is bulging and has an annular fissure. There is severe bilateral facet joint osteoart hritis. There is moderate bilateral neural foraminal stenosis. There is mild central canal stenosis. L5-S1: The disc is bulging and has an annular fissure. There is severe bilateral facet joint osteoart hritis. There is moderate bilateral neural foraminal stenosis. There is mild central canal stenosis. IMPRESSION: 1. Severe lumbar spondylosis, stable from 11/24/2020. Reviewed, dictated and finalized at location A. RAL SALES MANAGER
== END 2024-07-05 09:51 | disposition home or self-care (01) ==
PROVIDERS: PCP Family Medicine; Visit Provider Family Medicine
DX: M54.50 Low back pain, unspecified (principal); M43.06 Spondylolysis, lumbar region
CPT/HCPCS: 72148

== ENCOUNTER 2024-10-24 10:04 | Outpatient (RCR) | payer MEDICARE, SELFPAY ==
--- NOTE | 2024-10-24 10:58 | OPREHPOC ---
Outpatient Therapy Plan of Care This is a Multidisciplinary Plan of Care that may contain components documented by all disciplines (PT, OT, and ST.) PT Problem 1 PT Problem #1 Knowledge Deficit PT Goal 1 Goal / Goal Update 1. independent and compliant with HEP Target Visit 5 PT Problem 2 PT Problem #2 Pain PT Goal 1 Goal / Goal Update 1. patient to report no more than 3/10 pain in the lower back at worst in the last week. Target Visit 10 PT Problem 3 PT Problem #3 Impaired Balance PT Goal 1 Goal / Goal Update 1. patient to complete 5x sit to estimating engineer 15 seconds or less 2. patient to complete TUG in 15 seconds or less safely 3. tinetti to display moderate fall risk or less Target Visit 10 PT Problem 4 PT Problem #4 Impaired Strength PT Goal 1 Goal / Goal Update 1. patient to bridge and lift buttock off bed in supine for 20 seconds 2. improve R knee flex to 4+/5 or better 3. improve bilateral ankle DF to 4/5 or better Target Visit 10 PT Problem 5 PT Problem #5 Impaired Functional Mobility PT Goal 1 Goal / Goal Update 1. patient to ambulates 6 minutes for 1000ft or more with WW and safe mechanics 2. no falls in the last 4 weeks 3. oswestry to display 30% or less functional deficits Target Visit 10
--- NOTE | 2024-10-24 10:58 | PTOPEVAL1 ---
Assessment and note entered by [facility], PT Evaluation Information Assessment Status Evaluation Diagnosis lumbar spine, balance ICD-10 Condition Codes (PT) Pain in low back M54.50,Radiculopathy, lumbar region M54.16,Repeated falls R29.6,Difficulty Walking R26.2 Onset 10/21/24 Subjective Information patient reports he is having back problems. he reports he fell yesterday, and these back problems are increased due to this fall. he reports he had shots in the lower back 1 month ago. he reports the relief of pain from the shots was immediate, but since his fall he has really been hurting. he reports standing, walking, and lifting anything make his pain in the lower back worse. he reports he was trying to get out of his truck and fell. he reports he has had xrays recently of the lower back. he reports he did not go to his doctor or hospital after his fall. prior to his fall, he reports he was walking without pain, driving without pain, getting into and out of chairs/truck without pain, and hadn't fallen in a quite some time. he would like to get back to this level of safety/independence. Reported Pain Level Pain Score 2: Self Report Assessment PT Clinical Summary mr. elder is a 69 yo man who presents to skilled PT services for evaluation and lumbar pain, lumbar radiculopathy, weakness, and poor balance. he displays deficits in lumbar rom, LE and core strength, standing endurance, ambulation mechanics , and balance. he would benefit from continued skilled PT to address his objective/functional deficits and progress towards a return to his prior level functional activity performance and quality of life. Plan of Care Interventions Electrical Stimulation,Gait Training,Hot Pack/Cold Pack,Manual Therapy,Neuro Re-education,Patient/ Caregiver Education,Therapeutic Activities, Therapeutic Exercise PT Services Indicated Yes Treatment Frequency and 2x weekly for 10 visits Duration These treatments will address the objective and functional deficits as defined above. The patient will be advanced safely and appropriately in order for the patient to progress towards his/her prior level of function. Additional exercises will be introduced and as well as a comprehensive home exercise program upon discharge, if needed, ?to ensure carryover of functional gains achieved in the clinic. This treatment plan has been reviewed and agreement upon by the patient.
--- NOTE | 2025-03-17 15:02 | PCPTNOTE ---
patient discharged due to having to hold to care for his mom
== END 2025-01-22 23:59 | disposition home or self-care (01) ==
LOC: CHSPT 10:04
PROVIDERS: Visit Provider Nurse Practitioner Family
DX: M54.16 Radiculopathy, lumbar region (principal); M54.50 Low back pain, unspecified; R26.2 Difficulty in walking, not elsewhere classified
CPT/HCPCS: 97014; 97110; 97161; G0283